=== PATIENT | male | born 1975 | race Two or more races ===

== ENCOUNTER 2020-11-23 08:28 | Emergency (ER) | payer OTHER, SELFPAY ==
[2020-11-23 08:38] VITALS: BP 148/88; PULSE 90; RESP 16; TEMP 36; O2SAT 98; BMI 29.8
--- NOTE | 2020-11-23 08:52 | PC.NURSE ---
ambulatory with steady gait to ed 19H cold pack to rt shoulder, awaiting exam
--- NOTE | 2020-11-23 09:08 | XR_ITS ---
EXAMINATION: XR CHEST CLINICAL INFORMATION: Pain COMPARISON: Radiographs right shoulder 11/23/2020, chest radiographs 02/19/2017, 08/25/2015 TECHNIQUE: Frontal view of the chest was obtained. FINDINGS: There is no pneumothorax or pleural reaction. No airspace consolidation or groundglass opacity. The costophrenic sulci are clear. The heart is normal in size. The hilar and mediastinal contours and visualized bony structures are unremarkable. XR/XR chest 1V IMPRESSION: Unremarkable examination.
--- NOTE | 2020-11-23 09:08 | XR_ITS ---
EXAMINATION: XR SHOULDER, RIGHT CLINICAL INFORMATION: Pain COMPARISON: Chest radiographs 01/31/2018, 11/23/2020 TECHNIQUE: Right shoulder is imaged in 4 views. FINDINGS: There is no fracture or dislocation. The acromioclavicular alignment is normal. No arthropathy. No visible rotator cuff calcifications. XR/XR shoulder RT min 2V IMPRESSION: Normal right shoulder.
--- NOTE | 2020-11-23 09:29 | ED_ITS ---
HPI - Extremity Problem General Chief complaint: Extremity Injury, Upper Stated complaint: work injury - shoulder pain Time Seen by Provider: 11/23/20 09:08 History of Present Illness HPI Narrative: Patient is a 45-year-old male patient claims he had repetitive work using his shoulder at work. Complaining of pain to the right upper extremity. No fever no chills. No chest pain or shortness of breath. The pain is specific to movement of the right upper extremity. Patient denies any tingling. Denies any weakness. The pain is worse with movement. No trauma. Pain is localized over the trapezius and shoulder area. Related Data Previous Rx's Medication Instructions Recorded ibuprofen 400 mg PO Q6H PRN #20 tab 11/23/20 Allergies Allergy/AdvReac Type Severity Reaction Status Date / Time Penicillins [PENICILLINS] Allergy Unknown UNKNOWN Unverified 08/17/20 18:23 Review of Systems Review of Systems: Constitutional: No Weight loss, No Fever, No Chills, No Night Sweats, No Fatigue, No Malaise ENT/Mouth: No Hearing loss, No Ear Pain, No Nasal Congestion, No Sinus Pain, No Hoarseness, No sore throat, No Rhinorrhea, No Swallowing Difficulty Eyes: No Eye Pain, No Swelling, No Redness, No Foreign Body, No Discharge, No Vision Changes Cardiovascular: No Chest Pain, No SOB, No Dyspnea on Exertion, No Orthopnea, No Edema, No Palpitations Respiratory: No Cough, No Sputum, No Wheezing, No Smoke Exposure, No Dyspnea Gastrointestinal: No Nausea, No Vomiting, No Diarrhea, No Constipation, No a bdominal Pain, No Hematochezia, No Melena Genitourinary: no irregular bleeding, No Dysuria, No Urinary Frequency, No Hematuria, No Urinary Incontinence, No Urgency, No Flank Pain, No Urinary Flow Changes, No Hesitancy Musculoskeletal: Positive pain to the right shoulder Skin: No Skin Lesions, No rash Neuro: No Weakness, No Numbness, No Paresthesias, No Loss of Consciousness, No Dizziness, No Headache Psych: No Anxiety/Panic, No Depression, No SI/HI/AH/VH, No Social Issues, Heme/Lymph: No Bruising, No Bleeding,No Lymphadenopathy Endocrine: No Polyuria, No Polydipsia, No Temperature Intolerance [facility] Past Medical History Attestation statement: The following information was validated with the patient. Social History Social History Advance Directives: No Advance Directives Information Provided: No Physical Exam Vital Signs: Vital Signs: Last Vital Signs Temp 96.8 F 11/23/20 08:38 Pulse 90 11/23/20 08:38 Resp 16 11/23/20 08:38 BP 148/88 H 11/23/20 08:38 Pulse Ox 98 11/23/20 08:38 Body Mass Index 29.8 Appearance: Alert. Oriented X3. No acute distress. Eyes: Pupils equal, round and reactive to light. ENT: Pharynx normal. Neck: Normal inspection. Neck supple. No lymph nodes noted. No crepitus CVS: Normal heart rate and rhythm. Pulses normal. Normal S1 and S2 Respiratory: No respiratory distress. Breath sounds normal. No Wheezing. No rales Abdomen: Soft and nontender. No rigidity. No distention. good BS x4 Skin: Skin warm and dry. Normal skin color. Normal skin turgor. Extremities: Examination to the right shoulder showed no gross deformity. Sensation over the axillary, median, radial, ulnar nerve intact. Flexion extension at elbow wrist fingers intact. Capillary refill less than 2 seconds. Pulse 2 + at radial. Patient has pain on abduction of the shoulder. Pain on palpation of the trapezius area on the right. There is no chest wall tenderness. No lower extremity edema. Neurovascular intact to all extremities. No Lacerations. No Rash Neuro: Oriented X 3. No motor deficit. No sensory deficit. Moving all extermities. No slurred speech MDM - Extremity (Nontraumatic) MDM Narrative Medical decision making narrative: X-ray showed no evidence of fracture dislocation. Chest x-ray showed no evidence of pneumonia pneumothorax. No clavicular damage. There is no trauma. Patient's pain is worse with position. Seems musculoskeletal. Cannot exclude the possibility of cervical radiculopathy. Will have patient tried Motrin. Follow up on an outpatient basis with her connection. Currently in stable condition. Discharge Plan Discharge Clinical Impression: Other sprain of right shoulder joint, initial encounter, Cervical radiculopathy Patient Disposition: Home, Self-Care Instructions: Shoulder Sprain (ED), Cervical Radiculopathy (ED) Prescriptions: New ibuprofen 400 mg tablet 400 mg PO Q6H PRN (Reason: pain) Qty: 20 RF: 0 Referrals: [facility] [Provider Group] - 2 days Stand Alone Forms: Work/School Release
--- NOTE | 2020-11-23 09:45 | US_ITS ---
EXAMINATION: US VENOUS ULTRASOUND WITH DOPPLER UPPER EXTREMITY, RIGHT CLINICAL INFORMATION: Swelling. Assess for occult DVT. COMPARISON: None TECHNIQUE: Ultrasound of the upper extremity is performed using compression sonography and color and pulse Doppler flow with assessment of augmentation of flow. There is also imaging and Doppler assessment of the jugular and subclavian veins. Spectral analysis with color-flow imaging is performed. FINDINGS: Respiratory variation, normal compression, and augmented flow are noted throughout the upper extremity including the axillary, brachial, cubital, and radial veins. The ulnar vein is not visualized with certainty. There is normal flow in the internal jugular and subclavian veins. There is no visible deep or superficial thrombophlebitis. US/US venous duplex UE RT IMPRESSION: 1. No DVT demonstrated in the right upper extremity. 2. The ulnar vein is not visualized with certainty. If the patient's symptoms process, a followup exam in 5 -7 days might be of value to exclude proximal propagation from a nonvisualized vein distal arm.
--- NOTE | 2020-11-23 10:10 | PC.NURSE ---
MRI SCREEN FORM COMPLETED WITH CENTRAL OFFICE FRAME WIRER AND RN, FAXED TO MRI DEPT, PT NOW CHANGING IN TO [facility]
--- NOTE | 2020-11-23 10:16 | CT_ITS ---
EXAMINATION: CT CERVICAL SPINE WITHOUT CONTRAST CLINICAL INFORMATION: Neck pain COMPARISON: Radiographs cervical spine 07/27/2013 TECHNIQUE: Multidetector volumetric CT imaging of the cervical spine is performed without contrast in the axial plane. Additional 2D reformatted coronal and sagittal images are generated on the CT workstation and uploaded to PACS. This CT examination was performed using dose optimization techniques as appropriate, variously including the following: *Automated exposure control *Adjustment of mA and/or kV according to patient size (this includes techniques or standardized protocols for targeted exams where dose is matched to indication/reason for exam; i.e. extremities or head) *Use of iterative reconstruction technique DLP: 583 mGy-cm FINDINGS: There is no visible acute bony abnormality. No fracture or destructive process, or paraspinal soft tissue swelling, or prevertebral soft tissue swelling. The craniocervical junction appears normal. The odontoid appears intact. There is reversal cervical lordosis with degenerative disc changes C4-C5 and lesser at C5-C6, both with partially bridging anterior osteophytes. There is a posterocentral ossification at the upper posterior C5 vertebral body measuring 3 mm in thickness, 6 mm across, and 7 mm in vertical dimension. Sagittal spinal canal is 8 mm at this level. There may be posterior annulus bulging at C4-C5. CT/CT cervical spine wo con IMPRESSION: 1. 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 This likely causes central spinal stenosis. 2. Question posterocentral disc bulging C4-C5. 3. No fracture, destructive process, or prevertebral soft tissue swelling.
--- NOTE | 2020-11-23 10:28 | PC.NURSE ---
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
[2020-11-23 11:46] VITALS: BP 145/95; PULSE 79; RESP 16; TEMP 36.6; O2SAT 97
== END 2020-11-23 11:48 | disposition home or self-care (01) ==
PROVIDERS: Emergency Provider Emergency Medicine Emergency Medical Services; PCP Internal Medicine
DX: S43.401A Unspecified sprain of right shoulder joint, initial encounter (principal); X50.1XXA Overexertion from prolonged static or awkward postures, initial encounter; M54.12 Radiculopathy, cervical region; M25.511 Pain in right shoulder; Y93.9 Activity, unspecified; Y92.9 Unspecified place or not applicable; Y99.0 Civilian activity done for income or pay
CPT/HCPCS: 71045; 72125; 73030; 93971; 99283; 99285

== ENCOUNTER 2021-03-07 08:36 | Emergency (ER) | payer MEDICAID, SELFPAY ==
[2021-03-07] VITALS (7 sets, daily range): BP systolic 125–157; BP diastolic 90–110; PULSE 62–87; RESP 15–16; TEMP -17.3–37.1; O2SAT 96–98; BMI 29.2
--- NOTE | ~2021-03-07 | CT_ITS ---
EXAMINATION: CT ABDOMEN AND PELVIS WITHOUT CONTRAST CLINICAL INFORMATION: Right flank and lower quadrant pain. Question kidney stones COMPARISON: November 07, 2018 TECHNIQUE: Multidetector volumetric imaging was performed from the superior aspect of the liver through the pubic symphysis. Sagittal and coronal reformatted images were obtained on the technologist's workstation. This CT examination was performed using dose optimization techniques as appropriate, variously including the following: *Automated exposure control *Adjustment of mA and/or kV according to patient size (this includes techniques or standardized protocols for targeted exams where dose is matched to indication/reason for exam; i.e. extremities or head) *Use of iterative reconstruction technique DLP: 601 mGy-cm FINDINGS: LUNG BASES: The visualized lung bases are unremarkable. No pleural or pericardial effusion. LIVER, GALLBLADDER, AND BILIARY TREE: The liver is normal in size, shape, and attenuation. No focal hepatic lesion or biliary ductal dilatation is present. The gallbladder is unremarkable with no evidence of radiopaque gallstones, gallbladder wall thickening, or obvious pericholecystic inflammatory changes. PANCREAS: Unremarkable. SPLEEN: Unremarkable. ADRENAL GLANDS: Unremarkable. KIDNEYS AND URETERS: Right kidney: There is mild hydronephrosis present. No renal calculi identified. No renal mass is seen. There is hydroureter down to the level of a right ureteral calculus at the ureterovesical junction. The calculus measures approximately 5 mm in diameter. Left kidney: There is a 3 mm nonocclusive calculus seen within the lower pole. There is a 6 mm nonobstructing calculus seen within the lower pole. No hydronephrosis. No hydroureter. No renal mass appreciated. BLADDER: Unremarkable. GASTROINTESTINAL TRACT: No dilated loops of large or small bowel are evident. No free air or free fluid. No pericolonic inflammatory change. The appendix is visualized and appears unremarkable. ABDOMINAL WALL: No significant hernia is appreciated. LYMPH NODES: No lymphadenopathy appreciated. VASCULAR: Unremarkable. PELVIC VISCERA: Unremarkable. OSSEOUS STRUCTURES: No suspicious destructive bony lesion identified. CT/CT abdomen pelvis wo con IMPRESSION: Obstructive 5 mm right ureterovesical junction calculus with mild right hydronephrosis. Left nephrolithiasis.
--- NOTE | 2021-03-07 09:26 | ED_ITS ---
HPI - General Adult General Chief complaint: General Medical Stated complaint: abd pain Time Seen by Provider: 03/07/21 09:05 Source: patient Mode of arrival: ambulatory Limitations: language barrier (Wallisian speaking only, telephone interviewer used to obtain information) History of Present Illness HPI narrative: 45-year-old male who presents emergency department for evaluation of right flank pain x2 weeks, right lower quadrant pain and right testicular pain. The patient states that he has had a constant, burning sensation in his right flank area. He states that initially the pain was mild to moderate intensity but today the pain became severe. He states that the pain radiates to his right lower quadrant area into his right testicle. He has noted dysuria and urge to move his bowels, he denied frequency or hematuria. The patient had associated nausea. He denied fever, chills, chest pain, shortness of breath, myalgias, arthralgias, diarrhea. He states that he had a kidney stone on his left side approximately 9 months prior in the pain feels similar to the kidney stone pain. Related Data Previous Rx's Medication Instructions Recorded ibuprofen 400 mg PO Q6H PRN #20 tab 11/23/20 ondansetron 4 mg PO Q6-8H PRN #14 tab 03/07/21 oxycodone 5 mg PO Q6H PRN #14 tab 03/07/21 tamsulosin [Flomax] 0.4 mg PO DAILY #30 cap 03/07/21 Allergies Allergy/AdvReac Type Severity Reaction Status Date / Time Penicillins [PENICILLINS] Allergy Unknown UNKNOWN Unverified 08/17/20 18:23 Review of Systems Review of Systems: Yes all other systems are reviewed and are negative [facility] Past Medical History [facility] Narrative: Patient has a history of left-sided kidney stone, he has no past surgical history, he denies tobacco, alcohol and drug use. Surgical History (Updated 12/22/20 @ 13:34 by FABIANA Kc) No pertinent past surgical history Family History Family History (Updated 12/22/20 @ 13:36 by FABIANA Kc) Father Hypertension Mother No problems noted. Maternal Grandmother No problems noted. Maternal Grandfather No problems noted. Paternal Grandfather Hypertension Son No problems noted. Son No problems noted. Daughter No problems noted. Daughter No problems noted. Daughter No problems noted. Daughter No problems noted. Social History Social History Alcohol intake: never Smoking Status: Never smoker Use of substances other than those prescribed or required for medical reasons: No Advance Directives: No Advance Directives Information Provided: No Physical Exam Vital Signs: Vital Signs: Last Vital Signs Temp 0.8 F L 03/07/21 10:29 Pulse 68 03/07/21 11:37 Resp 16 03/07/21 12:08 BP 130/94 H 03/07/21 11:37 Pulse Ox 98 03/07/21 11:37 Body Mass Index 29.2 Const: General: cooperative and healthy appearing Orientation/consciousness: oriented to person and oriented to place Limitations: no limitations HENMT: Head: Yes normal to inspection, Yes normocephalic and Yes atraumatic Ears: external ears normal General nose exam: Normal external nose present Face and sinus: Yes normal facial exam Mouth: Normal oral and palatal mucosa present Throat: Yes posterior oropharynx normal Eyes: Periorbital: periorbital findings normal Eyelids: Yes eyelids normal Conjunctivae: conjunctivae normal Sclerae: sclerae normal Corneas: corneas normal Pupils: Equal, round and reactive pupils present Direct Ophthalmoscopy: normal light reflex Neck: Neck: Yes full ROM, Yes no lymphadenopathy, Yes no meningeal signs, Yes trachea midline and Yes supple Chest: Chest palpation & inspection: normal inspection of the chest and normal palpation of entire chest wall Resp: Effort & Inspection: normal respiratory effort and able to speak in complete sentences Auscultation: clear to auscultation bilaterally Cardio: Rate: regular rate Rhythm: regular rhythm Heart sounds: S1 normal heart sound present, S2 normal heart sound present and no murmurs GI: Inspection: Yes normal to inspection Palpation (GI): Soft to palpation, Tenderness to palpation present (GI) in the RLQ (Mild), no guarding, not rigid and No hepatosplenomegaly present : General: Yes CVA tenderness on the right (Mild) Penis: normal penis Scrotum: scrotum normal Testes: other ([id number] right testicular ten derness) Back/Spine/Pelvis: Back: CVA tenderness Cervical Spine: normal cervical lordosis Thoracic/Lumbar Spine: thoracic and lumbar spine normal to inspection Skin: Lesions: no lesions Rashes: no rashes Wounds: no wounds Neuro: General: oriented to person, oriented to place and no meningeal signs Cranial nerves: Yes CN's II-XII intact bilaterally and Yes Equal, round and reactive pupils present Cognition (Neuro): normal cognition Motor exam (neuro): 5/5 motor strength present throughout Extrem: General: Yes normal to inspection and Yes full ROM Psych: Appearance: well kempt Mental Status: mental status grossly normal Speech and movement: Normal speech and movement present Affect: normal affect Attitude: cooperative Thought process: Normal thought process present Thought content: Normal thought content present Course Course Course Narrative: 45-year-old male who presents emergency department for evaluation of constant right flank and right lower quadrant pain x2 weeks which is gotten worse over the past 24 hours, the pain does radiate to his right testicle. Physical examination revealed right-sided CVA tenderness, right lower quadrant tenderness and a tender right testicle. Differential includes but is not limited to kidney/ureteral stone and testicular torsion. I did order a CBC, CMP, lipase , urinalysis and a CT scan of the abdomen pelvis without IV contrast. Patient's pain was treated with Toradol 30 mg IV, his nausea was treated with Zofran 4 mg IV. He was also ordered to get a L of normal saline IV. 1058: The patient's pain did improve after the above treatment, his pain is still 3/10 therefore he was ordered to get Tylenol 975 mg orally and oxycodone 5 mg orally. Laboratory evaluation was unremarkable. Urinalysis is pending. CT scan revealed a 5 mm right ureteral stone at the UVJ with mild right hydronephrosis and left nephrolithiasis (3 mm nonobstructing stone 6 mm nonobstructing stone). I did discuss these findings with the patient. 1230: The patient's urinalysis revealed RBCs only, no wbc's and no bacteria. The patient feels significantly better after the above treatment. The patient will be discharged home. He was advised to take Tylenol and ibuprofen for pain. For pain not relieved by these 2 medications he was given a prescription for oxycodone, I did discuss the fact that oxycodone is a narcotic and can be addicting with the patient. The patient states he does not have problem with addiction. The patient was also given a prescription for Flomax. He will need to follow-up with our on-call urologist. [facility] search revealed 1 prescription for Vicodin and a 1 year surgeon interval. Medical Decision Making Lab Data Result diagrams: 03/07/21 09:47 03/07/21 09:47 Labs: Lab Results 03/07/21 03/07/21 03/07/21 Range/Units 09:47 09:47 09:47 WBC 8.4 (4.8-10.8) X10*3/uL RBC 5.34 (4.60-5.80) X10*6/uL Hgb 15.7 (14.0-18.0) g/dl Hct 46.3 (42-52) % MCV 86.7 (80-98) fL MCH 29.4 (27.0-33.0) pg MCHC 33.9 (31.0-36.0) g/dl RDW 12.8 (11.0-16.0) % Plt Count 156 L (160-400) X10*3/uL MPV 11.4 (9.4-12.4) fL Immature Gran % (Auto) 0.4 (0.0-0.4) % Neut % (Auto) 70.1 (45-73) % Lymph % (Auto) 17.0 L (20-40) % [place] % (Auto) 8.4 (2-11) % Eos % (Auto) 3.3 (0-4) % Baso % (Auto) 0.8 (0-2) % Lymph # (Auto) 1.4 (1.2-4.9) X10*3/uL [place] # (Auto) 0.7 (0.1-1.2) X10*3/uL Eos # (Auto) 0.3 (0.0-0.4) X10*3/uL Baso # (Auto) 0.1 (0.0-0.2) X10*3/uL Abs Immat Gran (auto) 0.03 (0.00-0.03) X10*3/uL Absolute Neuts (auto) 5.9 (2.0-8.3) X10*3/uL Absolute Nucleated RBC 0.000 (0.0-0.012) X10*3/uL Nucleated RBC % (auto) 0.0 (0.0-0.2) /100WBC Sodium 141 (135-145) mmol/L Potassium 4.2 (3.3-5.1) mmol/L Chloride 102 (96-108) mmol/L Carbon Dioxide 33 H (22-29) mmol/L Anion Gap 10 L (12-20) BUN 10 (9-16) mg/dL Creatinine 0.84 (0.5-1.4) mg/dL Estim Creat Clear Calc 112.8 Estimated GFR > 60 Random Glucose 101 (60-115) mg/dL Calcium 9.2 (8.4-10.2) mg/dL Total Bilirubin 0.8 (0.0-1.0) mg/dL AST 18 (5-37) U/L ALT 29 (0-40) U/L Alkaline Phosphatase 106 (39-117) U/L Total Protein 7.3 (6.5-8.0) g/dL Albumin 4.3 (3.5-5.0) g/dL Lipase 55 (8-78) U/L Urine Color Urine Appearance Urine pH (5.0-8.0) Ur Specific Mart (1.005-1.025) Urine Protein (NEG-TRACE) MG/DL Urine Glucose (UA) (NEG) MG/DL Urine Ketones (NEG) MG/DL Urine Blood (NEG) Urine Nitrite (NEG) Ur Leukocyte Esterase (NEG) Urine RBC (0) /HPF Urine WBC (0-4) /HPF Ur Squamous Epith Cells /LPF Amorphous Sediment /LPF Urine Bacteria /LPF 03/07/21 Range/Units 11:33 WBC (4.8-10.8) X10*3/uL RBC (4.60-5.80) X10*6/uL Hgb (14.0-18.0) g/dl Hct (42-52) % MCV (80-98) fL MCH (27.0-33.0) pg MCHC (31.0-36.0) g/dl RDW (11.0-16.0) % Plt Count (160-400) X10*3/uL MPV (9.4-12.4) fL Immature Gran % (Auto) (0.0-0.4) % Neut % (Auto) (45-73) % Lymph % (Auto) (20-40) % [place] % (Auto) (2-11) % Eos % (Auto) (0-4) % Baso % (Auto) (0-2) % Lymph # (Auto) (1.2-4.9) X10*3/uL [place] # (Auto) (0.1-1.2) X10*3/uL Eos # (Auto) (0.0-0.4) X10*3/uL Baso # (Auto) (0.0-0.2) X10*3/uL Abs Immat Gran (auto) (0.00-0.03) X10*3/uL Absolute Neuts (auto) (2.0-8.3) X10*3/uL Absolute Nucleated RBC (0.0-0.012) X10*3/uL Nucleated RBC % (auto) (0.0-0.2) /100WBC Sodium (135-145) mmol/L Potassium (3.3-5.1) mmol/L Chloride (96-108) mmol/L Carbon Dioxide (22-29) mmol/L Anion Gap (12-20) BUN (9-16) mg/dL Creatinine (0.5-1.4) mg/dL Estim Creat Clear Calc Estimated GFR Random Glucose (60-115) mg/dL Calcium (8.4-10.2) mg/dL Total Bilirubin (0.0-1.0) mg/dL AST (5-37) U/L ALT (0-40) U/L Alkaline Phosphatase (39-117) U/L Total Protein (6.5-8.0) g/dL Albumin (3.5-5.0) g/dL Lipase (8-78) U/L Urine Color YELLOW Urine Appearance CLOUDY Urine pH 8.0 (5.0-8.0) Ur Specific Mart 1.020 (1.005-1.025) Urine Protein NEG (NEG-TRACE) MG/DL Urine Glucose (UA) NEG (NEG) MG/DL Urine Ketones NEG (NEG) MG/DL Urine Blood 3+ H (NEG) Urine Nitrite NEG (NEG) Ur Leukocyte Esterase NEG (NEG) Urine RBC 76-150 H (0) /HPF Urine WBC 0 (0-4) /HPF Ur Squamous Epith Cells NONE /LPF Amorphous Sediment 3+ /LPF Urine Bacteria NONE /LPF Discharge Plan Discharge Clinical Impression: Calculus, ureteral, Kidney calculi, Renal colic on right side Patient Disposition: Home, Self-Care Instructions: Kidney Stones (ED), How to Strain Your Urine (ED) Additional Instructions: Your CT scan revealed a 5 mm right ureteral stone (stone in the tube that con nects the kidney to the bladder). This stone is right at the junction of the ureter and the bladder. Your CT scan also revealed 2 kidney stones in your left kidney that are not giving you pain at this time, you have a 3 mm and 6 mm stone in your left kidney. Take Flomax (tamsulosin) 0.4 mg once a day until he passed the stone. Take ibuprofen 200 mg pills, 3 pills every 6 hours as needed for pain. Take Tylenol (acetaminophen) 500 mg pills, 2 pills every 4-6 hours as needed for pain. For pain not relieved by ibuprofen or Tylenol take oxycodone 5 mg pills, 1 pill every 4 hours as needed for pain. Do not drive or work while taking this medication since they can cause sleepiness. Oxycodone is a narcotic medication that can be addicting. If you are concerned about addiction you can ask the p harmacist for less pills or do not get this prescription filled. Take Zofran (ondansetron) 4 mg, 1 tablet dissolved in your mouth every 6-8 hours as needed for nausea and vomiting. Make sure you strain your urine to try to catch the kidney stone. Follow-up with our on-call urologist, Dr. Galeano within 1 week. Please return to the emergency department if your symptoms get worse or if you develop any symptoms that are concerning to you. Prescriptions: New tamsulosin [Flomax] 0.4 mg capsule 0.4 mg PO DAILY Qty: 30 RF: 0 ondansetron 4 mg tablet,disintegrating 4 mg PO Q6-8H PRN (Reason: nausea and vomiting) Qty: 14 RF: 0 oxycodone 5 mg tablet 5 mg PO Q6H PRN (Reason: pain) Qty: 14 RF: 0 No Action ibuprofen 400 mg tablet 400 mg PO Q6H PRN (Reason: pain) Qty: 20 RF: 0 Referrals: Andre Galeano MD [Physician] - 1 week (5 mm right ureteral calculi at the UVJ, renal colic x2 weeks. Nonobstructing 3 mm and 6 mm calculi in the left kidney) Print Language: Wallisian
[2021-03-07] MEDS: ondansetron HCL 4 MG/2 ML VIAL IVPUSH (09:50)
[2021-03-07] MEDS: 0.9 % Sodium Chloride 1,000 ML 999 ML IV (09:50)
[2021-03-07] MEDS: Ketorolac Tromethamine 30 MG/ML VIAL IVPUSH (09:50)
[2021-03-07 09:52] LABS: MANUAL DIFF FLAG NO
[2021-03-07 09:54] LABS: Basophils Absolute Auto 0.1 X10*3/uL (0.0-0.2); Basophils Percent Auto 0.8 % (0-2); Eosinophils Absolute Auto 0.3 X10*3/uL (0.0-0.4); Eosinophils Percent Auto 3.3 % (0-4); Hematocrit 46.3 % (42-52); Hemoglobin 15.7 g/dl (14.0-18.0); Imm Gran Abs Auto 0.03 X10*3/uL (0.00-0.03); Imm Gran Pct Auto 0.4 % (0.0-0.4); Lymphocytes Absolute Auto 1.4 X10*3/uL (1.2-4.9); Mean Corpuscular HGB Conc 33.9 g/dl (31.0-36.0); Mean Corpuscular Hemoglobin 29.4 pg (27.0-33.0); Mean Corpuscular Volume 86.7 fL (80-98); Mean Platelet Volume 11.4 fL (9.4-12.4); Monocytes Absolute Auto 0.7 X10*3/uL (0.1-1.2); Monocytes Percent Auto 8.4 % (2-11); Neutrophils Absolute Auto 5.9 X10*3/uL (2.0-8.3); Neutrophils Percent Auto 70.1 % (45-73); Platelet Count 156 X10*3/uL (160-400); Red Blood Count 5.34 X10*6/uL (4.60-5.80); Red Cell Distribution Width 12.8 % (11.0-16.0); White Blood Count 8.4 X10*3/uL (4.8-10.8)
[2021-03-07 10:25] LABS: Alanine Aminotransferase 29 U/L (0-40); Albumin Level 4.3 g/dL (3.5-5.0); Alkaline Phosphatase 106 U/L (39-117); Anion Gap 10 (12-20); Aspartate Amino Transferase 18 U/L (5-37); Bilirubin Total 0.8 mg/dL (0.0-1.0); Carbon Dioxide 33 mmol/L (22-29); Chloride 102 mmol/L (96-108); Creatinine Clr Calc Pharmacy 112.8; Estimated Glomerular Filt Rate > 60; Glucose Random 101 mg/dL (60-115); Lipase 55 U/L (8-78); Potassium 4.2 mmol/L (3.3-5.1); Sodium 141 mmol/L (135-145); Total Protein 7.3 g/dL (6.5-8.0)
[2021-03-07 10:27] LABS: Blood Urea Nitrogen 10 mg/dL (9-16); Calcium 9.2 mg/dL (8.4-10.2)
[2021-03-07] MEDS: oxyCODONE HCl Immed Release 5 MG TABLET PO (11:38)
[2021-03-07] MEDS: Acetaminophen 325 MG TABLET 975 MG PO (11:38)
[2021-03-07 11:44] LABS: Appearance Urine CLOUDY; Color Urine YELLOW; Glucose Urine UA NEG (NEG); Leukocyte Esterase Urine NEG (NEG); Nitrite Urine NEG (NEG); Urine Blood 3+ (NEG); Urine Ketones NEG (NEG); Urine Protein NEG (NEG-TRACE)
[2021-03-07 11:51] LABS: Amorphous Sediment Urine 3+ /LPF; WBC Urine 0 /HPF (0-4)
== END 2021-03-07 13:39 | disposition home or self-care (01) ==
PROVIDERS: Emergency Provider Emergency Medicine Emergency Medical Services; PCP Internal Medicine
DX: N20.2 Calculus of kidney with calculus of ureter (principal); R10.31 Right lower quadrant pain; Z79.899 Other long term (current) drug therapy
CPT/HCPCS: 36415; 74176; 80053; 81001; 83690; 85025; 96365; 96375; 99284; J1885; J2405

== ENCOUNTER 2021-03-08 13:42 | Outpatient (REF) | payer MEDICAID, SELFPAY | END 2021-03-08 13:43 | disposition home or self-care (01) | LOC: HO.LAB 13:42 | PROVIDERS: Visit Provider Internal Medicine | DX: Z20.822 Contact with and (suspected) exposure to COVID-19 (principal) | CPT/HCPCS: C9803; U0003; U0005 ==

== ENCOUNTER → 2021-03-15 14:55 | Outpatient (BNVA) | payer MEDICAID, SELFPAY | PROVIDERS: PCP Internal Medicine; Visit Provider Urology ==

== ENCOUNTER 2021-03-22 10:06 | Outpatient (REF) | payer MEDICAID, SELFPAY | END 2021-03-22 10:07 | disposition home or self-care (01) | LOC: HO.LAB 10:06 | PROVIDERS: Visit Provider Internal Medicine | DX: Z20.822 Contact with and (suspected) exposure to COVID-19 (principal) | CPT/HCPCS: C9803; U0003; U0005 ==

== ENCOUNTER 2021-04-24 13:28 | Outpatient (REF) | payer OTHER, SELFPAY ==
--- NOTE | ~2021-04-24 | XR_ITS ---
EXAMINATION: XR HAND, LEFT CLINICAL INFORMATION: Pain COMPARISON: None TECHNIQUE: PA, lateral, and oblique views of the left hand. FINDINGS: There is a foreign body is seen in the palmar soft tissues adjacent to the middle phalanx of the fifth finger. This measures 2 x 6 mm. Bone alignment is normal. No fracture or dislocation is seen. Joint spaces are normal. XR/XR hand LT min 3V IMPRESSION: 2 x 6 mm radiopaque soft tissue foreign body adjacent to the palmar middle phalanx of the fifth finger.
== END 2021-04-24 13:29 | disposition home or self-care (01) ==
LOC: HO.XRAY 13:28
PROVIDERS: PCP Internal Medicine; Visit Provider Internal Medicine
DX: M79.642 Pain in left hand (principal); M79.5 Residual foreign body in soft tissue
CPT/HCPCS: 73130

== ENCOUNTER → 2021-05-17 11:16 | Outpatient (BNVA) | payer OTHER, SELFPAY | PROVIDERS: PCP Internal Medicine; Referring Provider Internal Medicine; Visit Provider Surgery | DX: S60.552A Superficial foreign body of left hand, initial encounter (principal) | CPT/HCPCS: 99202 ==

== ENCOUNTER 2021-11-07 15:16 | Emergency (ER) | payer OTHER, SELFPAY ==
--- NOTE | ~2021-11-07 | CT_ITS ---
EXAMINATION: CT ABDOMEN AND PELVIS WITHOUT CONTRAST CLINICAL INFORMATION: Left flank pain. Question stone. COMPARISON: 03/07/2021 TECHNIQUE: Multidetector volumetric imaging was performed from the superior aspect of the liver through the pubic symphysis. Sagittal and coronal reformatted images were obtained on the technologist's workstation. This CT examination was performed using dose optimization techniques as appropriate, variously including the following: *Automated exposure control *Adjustment of mA and/or kV according to patient size (this includes techniques or standardized protocols for targeted exams where dose is matched to indication/reason for exam; i.e. extremities or head) *Use of iterative reconstruction technique DLP: 631 mGy-cm FINDINGS: LUNG BASES: The visualized lung bases are unremarkable. LIVER, GALLBLADDER, AND BILIARY TREE: The liver is normal in size, shape, and attenuation. No focal hepatic lesion or biliary ductal dilatation is present. The gallbladder is unremarkable with no evidence of radiopaque gallstones, gallbladder wall thickening, or obvious pericholecystic inflammatory changes. PANCREAS: Unremarkable. SPLEEN: Unremarkable. ADRENAL GLANDS: Unremarkable. KIDNEYS AND URETERS: The kidneys are normal in size, shape, and attenuation. Mild left hydroureteronephrosis. There is a mid ureteral 0.5 cm calculus seen at the level of L4. The distal ureter is decompressed. Asymmetric left perinephric stranding. Nonobstructing left lower pole 0.4 cm calculus which is 13 cm from the posterior axillary line. BLADDER: Unremarkable. GASTROINTESTINAL TRACT: The small and large bowel are unremarkable. The appendix is unremarkable. ABDOMINAL WALL: No significant hernia is appreciated. LYMPH NODES: Normal. VASCULAR: Unremarkable. PELVIC VISCERA: The prostate and seminal vesicles are unremarkable. OSSEOUS STRUCTURES: No acute or suspicious osseous abnormality. Tiny endplate osteophytes are noted. Mild degenerative changes in the hips. CT/CT abdomen pelvis wo con IMPRESSION: Mild left hydroureteronephrosis with a 0.5 cm mid ureteral obstructing calculus. Additional nonobstructing left lower pole renal calculus. Fleischner guidelines were followed.
[2021-11-07 15:51] VITALS: BP 158/100; PULSE 79; RESP 20; O2SAT 97; BMI 31.3
[2021-11-07 16:33] LABS: MANUAL DIFF FLAG NO
[2021-11-07 16:34] LABS: Basophils Absolute Auto 0.1 X10*3/uL (0.0-0.2); Basophils Percent Auto 0.9 % (0-2); Eosinophils Absolute Auto 0.4 X10*3/uL (0.0-0.4); Eosinophils Percent Auto 4.9 % (0-4); Hematocrit 44.8 % (42.0-52.0); Hemoglobin 15.7 g/dl (14.0-18.0); Imm Gran Abs Auto 0.02 X10*3/uL (0.00-0.03); Imm Gran Pct Auto 0.2 % (0.0-0.4); Lymphocytes Absolute Auto 2.1 X10*3/uL (1.2-4.9); Lymphocytes Percent Auto 23.9 % (20-40); Mean Corpuscular Hemoglobin 29.6 pg (27.0-33.0); Mean Corpuscular Volume 84.4 fL (80.0-98.0); Mean Platelet Volume 11.6 fL (9.4-12.4); Monocytes Absolute Auto 0.8 X10*3/uL (0.1-1.2); Monocytes Percent Auto 9.3 % (2-11); Neutrophils Absolute Auto 5.2 x10*3/uL (2.0-8.3); Neutrophils Percent Auto 60.8 % (45-73); Platelet Count 158 X10*3/uL (160-400); Red Blood Count 5.31 X10*6/uL (4.60-5.80); Red Cell Distribution Width 13.3 % (11.0-16.0); White Blood Count 8.6 X10*3/uL (4.8-10.8)
[2021-11-07 16:46] LABS: Anion Gap 12 (12-20); Blood Urea Nitrogen 8 mg/dL (9-16); Calcium 9.8 mg/dL (8.4-10.2); Carbon Dioxide 28 mmol/L (22-29); Chloride 104 mmol/L (96-108); Creatinine Clr Calc Pharmacy 93.2; Estimated Glomerular Filt Rate > 60; Glucose Random 106 mg/dL (60-115); Potassium 4.1 mmol/L (3.3-5.1); Sodium 140 mmol/L (135-145)
[2021-11-07 18:38] VITALS: BP 127/95; PULSE 77; RESP 16; TEMP 36.9; O2SAT 99
--- NOTE | 2021-11-07 18:39 | ED.GENADULT ---
HPI - General Adult General Chief complaint: General Medical Stated complaint: abd pain ?gallstones Time Seen by Provider: 11/07/21 18:39 Source: patient Mode of arrival: ambulatory Limitations: language barrier History of Present Illness HPI narrative: Patient with history of kidney stone which came out of its own last time, complaining of pain in the left flank area for last 4- 5 days getting worse prior to arrival patient nauseated and vomited 1 time pain is now radiating to the left testicle is sharp in character no fever chills no hematuria Related Data Previous Rx's Medication Instructions Recorded ondansetron 4 mg disintegrating 4 mg PO Q6-8H PRN #7 tab 11/07/21 tablet oxycodone 5 mg tablet 5 mg PO Q6H PRN #20 tab 11/07/21 tamsulosin 0.4 mg capsule (Flomax) 0.4 mg PO DAILY #10 cap 11/07/21 Allergies Allergy/AdvReac Type Severity Reaction Status Date / Time Penicillins [PENICILLINS] Allergy Unknown Unknown Verified 11/07/21 15:50 Review of Systems Review of Systems: Yes all other systems are reviewed and are negative [facility] Past Medical History Medical History Foreign body of left hand Hematuria Kidney stone Left hand pain Lumbar pain Surgical History No pertinent past surgical history Family History Family History Father Hypertension Mother No problems noted. Maternal Grandmother No problems noted. Maternal Grandfather No problems noted. Paternal Grandfather Hypertension Son No problems noted. Son No problems noted. Daughter No problems noted. Daughter No problems noted. Daughter No problems noted. Daughter No problems noted. Social History Social History Housing: Apartment Alcohol intake: never Patient Tobacco Use Status: Former Tobacco user Second Hand Smoke Exposure: Yes Advance Directives: No Advance Directives Information Provided: Yes service: No Current occupational status: employed Physical Exam Vital Signs: Vital Signs: Last Vital Signs Temp 98.5 F 11/07/21 18:38 Pulse 77 11/07/21 21:33 Resp 16 11/07/21 21:33 BP 124/81 11/07/21 21:33 Pulse Ox 96 11/07/21 21:33 BMI result Body Mass Index 31.3 Appearance: Alert. Oriented X3. No acute distress. ENT: Pharynx normal. Oral Mucosa moist Neck: Normal inspection. Neck supple. CVS: Normal heart rate and rhythm. Pulses normal. Respiratory: No respiratory distress. Equal air entry bilateral, no wheezing/rales/rhonchi Abdomen: Soft and nontender. Bowel sounds are present, no mass palpable,L CVA tenderness + Skin: Skin warm and dry. Normal skin color. Normal skin turgor. Extremities: No lower extremity edema. Neuro: Oriented X 3. Medical Decision Making MDM Narrative Medical decision making narrative: Patient with left mid ureter 5 mm stone with hydronephrosis patient felt better after pain medication and Flomax discharge patient home advised to follow with urologist Lab Data Lab results reviewed: Yes I reviewed the patient's lab results. Result diagrams: 11/07/21 16:27 11/07/21 16:27 Labs: Lab Results 11/07/21 11/07/21 11/07/21 Range/Units 16:27 16:27 18:38 WBC 8.6 (4.8-10.8) X10*3/uL RBC 5.31 (4.60-5.80) X10*6/uL Hgb 15.7 (14.0-18.0) g/dl Hct 44.8 (42.0-52.0) % MCV 84.4 (80.0-98.0) fL MCH 29.6 (27.0-33.0) pg MCHC 35.0 (31.0-36.0) g/dl RDW 13.3 (11.0-16.0) % Plt Count 158 L (160-400) X10*3/uL MPV 11.6 (9.4-12.4) fL Immature Gran % (Auto) 0.2 (0.0-0.4) % Neut % (Auto) 60.8 (45-73) % Lymph % (Auto) 23.9 (20-40) % [place] % (Auto) 9.3 (2-11) % Eos % (Auto) 4.9 H (0-4) % Baso % (Auto) 0.9 (0-2) % Lymph # (Auto) 2.1 (1.2-4.9) X10*3/uL [place] # (Auto) 0.8 (0.1-1.2) X10*3/uL Eos # (Auto) 0.4 (0.0-0.4) X10*3/uL Baso # (Auto) 0.1 (0.0-0.2) X10*3/uL Abs Immat Gran (auto) 0.02 (0.00-0.03) X10*3/uL Absolute Neuts (auto) 5.2 (2.0-8.3) x10*3/uL Absolute Nucleated RBC 0.000 (0.0-0.012) X10*3/uL Nucleated RBC % (auto) 0.0 (0.0-0.2) /100WBC Sodium 140 (135-145) mmol/L Potassium 4.1 (3.3-5.1) mmol/L Chloride 104 (96-108) mmol/L Carbon Dioxide 28 (22-29) mmol/L Anion Gap 12 (12-20) BUN 8 L (9-16) mg/dL Creatinine 1.04 (0.5-1.4) mg/dL Estim Creat Clear Calc 93.2 Estimated GFR > 60 Random Glucose 106 (60-115) mg/dL Calcium 9.8 D (8.4-10.2) mg/dL Urine Color YELLOW Urine Appearance CLOUDY Urine pH 7.5 (5.0-8.0) Ur Specific [place] 1.015 (1.005-1.025) Urine Protein NEG (NEG-TRACE) MG/DL Urine Glucose (UA) NEG (NEG) MG/DL Urine Ketones NEG (NEG) MG/DL Urine Blood 3+ H (NEG) Urine Nitrite NEG (NEG) Ur Leukocyte Esterase NEG (NEG) Urine RBC 30-49 H (0) /HPF Urine WBC 0 (0-4) /HPF Ur Squamous Epith Cells TRACE /LPF Amorphous Sediment 1+ /LPF Urine Bacteria TRACE /LPF Urine Mucus TRACE /LPF Discharge Plan Discharge Clinical Impression: Kidney stone on left side Patient Disposition: Home, Self-Care Instructions: Kidney Stones (ED) Additional Instructions: Drink plenty of fluids Pain medication as advised Follow-up with urologist as the stone likely to cause more pain Report to ER if pain gets worse Beber mucho l?quido Medicaci?n para el dolor seg?n lo recomendado Irving un seguimiento con el ur?logo, ya que es probable que el c?lculo cause m?s dolor. Informe a la iza de emergencias si el dolor empeora Prescriptions: New oxycodone 5 mg tablet 5 mg PO Q6H PRN (Reason: Pain, Moderate) Qty: 20 RF: 0 tamsulosin [Flomax] 0.4 mg capsule 0.4 mg PO DAILY Qty: 10 RF: 0 ondansetron 4 mg tablet,disintegrating 4 mg PO Q6-8H PRN (Reason: nausea and vomiting) Qty: 7 RF: 0 Referrals: Andre Galeano MD [Physician] - 5 days Stand Alone Forms: Work/School Release Interventions: ED Discharge Assessment Last Done: 11/07/21 21:34 Discharge Date/Time: 11/07/21 21:35
[2021-11-07 18:45] LABS: Appearance Urine CLOUDY; Color Urine YELLOW; Glucose Urine UA NEG (NEG); Leukocyte Esterase Urine NEG (NEG); Nitrite Urine NEG (NEG); PH 7.5 (5.0-8.0); Specific Gravity - Urine 1.015 (1.005-1.025); UACC Culture Trigger NO; Urine Blood 3+ (NEG); Urine Ketones NEG (NEG); Urine Protein NEG (NEG-TRACE)
[2021-11-07 18:51] LABS: Amorphous Sediment Urine 1+ /LPF; Bacteria Urine TRACE /LPF; Mucus Urine TRACE /LPF; RBC Urine 30-49 /HPF (0); Squamous Epithelial Cell Urine TRACE /LPF; WBC Urine 0 /HPF (0-4)
[2021-11-07] MEDS: 0.9 % Sodium Chloride 1,000 ML 999 ML IVCONT (19:14)
[2021-11-07] MEDS: ondansetron HCL 4 MG/2 ML VIAL IVPUSH (19:18)
[2021-11-07] MEDS: Ketorolac Tromethamine 30 MG/ML VIAL IVPUSH (19:18)
[2021-11-07] MEDS: Tamsulosin HCL 0.4 MG CAPSULE PO (19:18)
--- NOTE | 2021-11-07 19:20 | PC.NURSE ---
IV established, IVF infusing. Pt medicated per MAR, refusing Morphine @ this time, states Last time it made me crazy. VSS.
[2021-11-07] MEDS: oxyCODONE HCl Immed Release 5 MG TABLET 10 MG PO (20:58)
[2021-11-07 21:33] VITALS: BP 124/81; PULSE 77; RESP 16; O2SAT 96
== END 2021-11-07 21:35 | disposition home or self-care (01) ==
PROVIDERS: Emergency Provider Internal Medicine; PCP Internal Medicine
DX: N13.2 Hydronephrosis with renal and ureteral calculous obstruction (principal); Z87.442 Personal history of urinary calculi
CPT/HCPCS: 36415; 74176; 80048; 81001; 85025; 96361; 96374; 96375; 99284; J1885; J2405

== ENCOUNTER 2021-11-15 09:26 | Emergency (ER) | payer OTHER, SELFPAY ==
--- NOTE | ~2021-11-15 | US_ITS ---
EXAMINATION: LEFT RENAL ULTRASOUND REQUESTED BY ORDERING PROVIDER. CLINICAL INFORMATION: Renal colic COMPARISON: CT scan of November 07, 2021 TECHNIQUE: Real-time ultrasound evaluation of the left kidney. FINDINGS: Left kidney measures 11.4 x 6.8 x 5.4 cm in size. There is mild hydronephrosis. There is hydroureter seen down to the urinary bladder. No abnormal mass within the left kidney is seen. There are are noted to be 2 echogenic foci present consistent with calculi which are nonobstructive. One in the lower pole measures 5 x 4 mm in size and one in the midpole region measures 3 x 3 mm in size. The urinary bladder is is partially full. US/US renal LT IMPRESSION: Mild left hydronephrosis with left hydroureter. Bilateral ureteral jets identified but a partially left ureteral calculus cannot be excluded. A recently passed calculus could also have this appearance. Left nephrolithiasis.
[2021-11-15 10:06] VITALS: PULSE 86; RESP 18; TEMP 36.6; O2SAT 95; BMI 31.3
--- NOTE | 2021-11-15 10:31 | ED_ITS ---
HPI - Abdominal Pain General Chief Complaint: Abdominal Pain Stated Complaint: back pain Time Seen by Provider: 11/15/21 10:11 Source: patient and complaint investigations officer Mode of arrival: ambulatory Limitations: language barrier History of Present Illness HPI narrative: 46-year-old male with a history of renal colic here with c omplaints of left-sided flank pain with radiation to the left abdomen over the last 1.5 weeks. Patient tells me he was seen here on November 07 diagnosed with a left kidney stone. Referred to follow-up with urology. Patient tells me his upcoming appointment on November 22 with urology. Here today for persistent pain, nausea with 1 episode of vomiting today prior to arrival. No urinary complaints, fevers, chills. Patient tells me he has not been taking the oxycodone because when he takes it he feels dizzy. Of note, review of chart shows a 0.5cm with mild left hydro. Related Data Previous Rx's Medication Instructions Recorded ondansetron 4 mg disintegrating 4 mg PO Q6-8H PRN #7 tab 11/07/21 tablet oxycodone 5 mg tablet 5 mg PO Q6H PRN #20 tab 11/07/21 tamsulosin 0.4 mg capsule (Flomax) 0.4 mg PO DAILY #10 cap 11/07/21 prednisone 20 mg tablet 20 mg PO DAILY 5 Days #5 tab 11/08/21 naproxen 500 mg tablet (Naprosyn) 500 mg PO Q12H PRN #30 tab 11/13/21 Allergies Allergy/AdvReac Type Severity Reaction Status Date / Time Penicillins [PENICILLINS] Allergy Unknown Unknown Verified 11/07/21 15:50 Review of Systems Review of Systems Yes all other systems are reviewed and are negative Constitutional: Reports no additional constitutional complaints, Denies body ache(s), Denies chills, Denies fever(s), Denies headache(s) and Denies weakness Eyes: Reports no additional eye complaints and Denies change in vision Reports system reviewed and no additional complaints, except as documented, Denies dizziness, Denies headache(s), Denies nasal congestion, Denies nasal dis charge and Denies neck pain Cardiovascular: Reports no additional cardiovascular complaints, Denies chest pain, Denies leg edema and Denies dyspnea Respiratory: Reports no additional respiratory complaints, Denies cough and Denies dyspnea Gastrointestinal: Reports no additional gastrointestinal complaints, Reports abdominal pain, Denies diarrhea, Denies nausea and Denies vomiting Genitourinary: Denies urinary incontinence Musculoskeletal: Reports no additional musculoskeletal complaints, Reports back pain, Denies arthralgias, Denies joint swelling, Denies neck pain, Denies numbness and Denies tingling Skin/Breast: Reports system reviewed and no additional complaints, except as docu and Denies rash Reports system reviewed and no additional complaints, except as documented, Denies Abnormal speech present, Denies dizziness, Denies headache(s), Denies numbness, Denies tingling and Denies weakness Physical Exam Vital Signs: Vital Signs: Last Vital Signs Temp 97.9 F 11/15/21 10:34 Pulse 88 11/15/21 10:34 Resp 16 11/15/21 10:34 BP 144/91 H 11/15/21 10:34 Pulse Ox 95 11/15/21 10:34 BMI result Body Mass Index 31.3 Const: General: cooperative, healthy appearing, comfortable and no acute distress Orientation/consciousness: patient oriented x3 Limitations: no limitations HENMT: Head: Yes normal to inspection Ears: hearing grossly normal bilaterally General nose exam: Normal external nose present Face and sinus: Yes normal facial exam Mouth: Normal oral and palatal mucosa present Throat: Yes posterior oropharynx normal Eyes: General: appearance normal, both eyes and all related structures Pupils: Equal, round and reactive pupils present Neck: Neck: Yes normal visual inspection Chest: Chest palpation & inspection: normal inspection of the chest Resp: Effort & Inspection: normal respiratory effort Auscultation: clear to auscultation bilaterally Cardio: Rate: regular rate Rhythm: regular rhythm Peripheral pulses: P eripheral pulses 2+ throughout GI: Inspection: Yes normal to inspection Palpation (GI): Soft to palpation and Tenderness to palpation present (GI) (Left-sided abdominal pain moderate with no rebound or guarding) Auscultation: normal bowel sounds Back/Spine/Pelvis: Other: Left CVA tenderness moderate. Thoracic/Lumbar Spine: thoracic and lumbar spine normal to inspection Skin: General skin exam: no rashes or lesions noted Neuro: General: patient oriented x3, no focal motor deficits and normal sensation to monofilament Cranial nerves: Yes Equal, round and reactive pupils present Cognition (Neuro): normal cognition Speech: No Abnormal speech present Gait exam (Neuro): Normal gait present Motor exam (neuro): 5/5 motor strength present throughout Extrem: General: Yes normal to inspection Course Course Course Narrative: 46-year-old male with a known left 0.5 cm kidney stone with mild left hydro diagnosed on November 07 here in this emergency department here with persistent left flank and abdominal pain with associated vomiting. Patient has not been noncompliant with taking his oxycodone as it makes him feel dizzy and nauseous. He is taking Flomax daily. He has a follow-up on November 22 with urology. He has a history of multiple kidney stones but has never required any surgical intervention for these. On exam the patient has mild to moderate left CVA tenderness with some left-sided abdominal pain with no rebound or guarding. He reports some nausea at this time but no active vomiting. Will repeat labs, UA, renal ultrasound and provide analgesia 1300- Labs unremarkable. UA shows microscopic hematuria. Renal ultrasound shows IMPRESSION: Mild left hydronephrosis with left hydroureter. Bilateral ureteral jets identified but a partially left ureteral calculus cannot be excluded. A recently passed calculus could also have this appearance. ?Left nephrolithiasis. -pain well controlled. Patient tolerating p.o.. Plan for discharge home. Recommended taking an NSAID inset of oxycodone for pain due to reported side effects. Reviewed worrisome signs and symptoms of when to return to the emergency department. Comfortable discharge home. MDM - Abdominal Pain Medical Records Attestation: I reviewed the patient's medical records. Lab Data Attestation: I reviewed the patient's lab results. Result diagrams: 11/15/21 10:43 11/15/21 10:43 Labs: Lab Results 11/15/21 11/15/21 11/15/21 Range/Units 10:43 10:43 10:43 WBC 9.7 (4.8-10.8) X10*3/uL RBC 5.20 (4.60-5.80) X10*6/uL Hgb 15.1 (14.0-18.0) g/dl Hct 44.7 (42.0-52.0) % MCV 86.0 (80.0-98.0) fL MCH 29.0 (27.0-33.0) pg MCHC 33.8 (31.0-36.0) g/dl RDW 13.5 (11.0-16.0) % Plt Count 146 L (160-400) X10*3/uL MPV 11.0 (9.4-12.4) fL Immature Gran % (Auto) 0.4 (0.0-0.4) % Neut % (Auto) 72.6 (45-73) % Lymph % (Auto) 16.1 L (20-40) % [place] % (Auto) 8.4 (2-11) % Eos % (Auto) 2.0 (0-4) % Baso % (Auto) 0.5 (0-2) % Lymph # (Auto) 1.6 (1.2-4.9) X10*3/uL [place] # (Auto) 0.8 (0.1-1.2) X10*3/uL Eos # (Auto) 0.2 (0.0-0.4) X10*3/uL Baso # (Auto) 0.1 (0.0-0.2) X10*3/uL Abs Immat Gran (auto) 0.04 H (0.00-0.03) X10*3/uL Absolute Neuts (auto) 7.0 (2.0-8.3) x10*3/uL Absolute Nucleated RBC 0.000 (0.0-0.012) X10*3/uL Nucleated RBC % (auto) 0.0 (0.0-0.2) /100WBC Sodium 142 (135-145) mmol/L Potassium 4.2 (3.3-5.1) mmol/L Chloride 106 (96-108) mmol/L Carbon Dioxide 29 (22-29) mmol/L Anion Gap 11 L (12-20) BUN 15 D (9-16) mg/dL Creatinine 0.99 (0.5-1.4) mg/dL Estim Creat Clear Calc 97.9 Estimated GFR > 60 Random Glucose 116 H (60-115) mg/dL Calcium 8.8 D (8.4-10.2) mg/dL Total Bilirubin 0.6 (0.0-1.0) mg/dL Direct Bilirubin 0.2 (0.0-0.5) mg/dL AST 14 (5-37) U/L ALT 20 (0-40) U/L Alkaline Phosphatase 102 (39-117) U/L Total Protein 6.5 (6.5-8.0) g/dL Albumin 3.9 (3.5-5.0) g/dL Urine Color ORANGE Urine Appearance CLOUDY Urine pH 6.0 (5.0-8.0) Ur Specific [place] >= 1.030 H (1.005-1.025) Urine Protein 2+ H (NEG-TRACE) MG/DL Urine Glucose (UA) NEG (NEG) MG/DL Urine Ketones 5 (NEG) MG/DL Urine Blood 3+ H (NEG) Urine Nitrite NEG (NEG) Ur Leukocyte Esterase NEG (NEG) Urine RBC TNTC H (0) /HPF Urine WBC 0 (0-4) /HPF Ur Squamous Epith Cells NONE /LPF Calcium Oxalate Crystal 4+ /LPF Urine Bacteria NONE /LPF Urine Mucus 2+ /LPF Imaging Data Renal US: Attestation: I personally reviewed and interpreted this imaging study as follows: Radiologist's impression: [place] [id number] Ultrasound Report Signed Patient: Arturo Whitney MR#: [id number] : 1975 Acct:[id number] Age/Sex: 46 / M ADM Date: 11/15/21 Loc: .ED Attending Dr: Ordering Physician: Lauren Mcarthur NP Date of Service: 11/15/21 Procedure(s): US renal LT Accession Number(s): [id number] cc: Lauren Mcarthur NP~ EXAMINATION: LEFT RENAL ULTRASOUND REQUESTED BY ORDERING PROVIDER. CLINICAL INFORMATION: Renal colic? COMPARISON: CT scan of November 07, 2021? TECHNIQUE: Real-time ultrasound evaluation of the left kidney.? FINDINGS: Left kidney measures 11.4 x 6.8 x 5.4 cm in size. There is mild hydronephrosis. There is hydroureter seen down to the urinary bladder. No abnormal mass within the left kidney is seen. There are are noted to be 2 echogenic foci present consistent with calculi which are nonobstructive. One in the lower pole measures 5 x 4 mm in size and one in the midpole region measures 3 x 3 mm in size. The urinary bladder is is partially full.? US/US renal LT IMPRESSION: Mild left hydronephrosis with left hydroureter. Bilateral ureteral jets identified but a partially left ureteral calculus cannot be excluded. A recently passed calculus could also have this appearance. ? Left nephrolithiasis. Discharge Plan Discharge Clinical Impression: Renal colic on left side Patient Disposition: Home, Self-Care Instructions: Renal Colic (ED) Additional Instructions: The oxycodone can make you feel dizzy and nauseous Take ibuprofen instead Follow-up with urology as scheduled Prescriptions: No Action prednisone 20 mg tablet 20 mg PO DAILY 5 Days Qty: 5 RF: 0 naproxen [Naprosyn] 500 mg tablet 500 mg PO Q12H PRN (Reason: pain) Qty: 30 RF: 0 oxycodone 5 mg tablet 5 mg PO Q6H PRN (Reason: Pain, Moderate) Qty: 20 RF: 0 tamsulosin [Flomax] 0.4 mg capsule 0.4 mg PO DAILY Qty: 10 RF: 0 ondansetron 4 mg tablet,disintegrating 4 mg PO Q6-8H PRN (Reason: nausea and vomiting) Qty: 7 RF: 0 Referrals: Andre Galeano MD [Physician] - 1 week (as scheduled ) Stand Alone Forms: Work/School Release ON LICENSE OF [facility] Past Medical History Attestation statement: The following information was validated with the patient. Source: old records reviewed and nursing notes reviewed Medical History Foreign body of left hand Hematuria Kidney stone Left hand pain Lumbar pain Surgical History No pertinent past surgical history Family History Family History Father Hypertension Mother No problems noted. Maternal Grandmother No problems noted. Maternal Grandfather No problems noted. Paternal Grandfather Hypertension Son No problems noted. Son No problems noted. Daughter No problems noted. Daughter No problems noted. Daughter No problems noted. Daughter No problems noted. Social History Social History Housing: Apartment Alcohol intake: never Patient Tobacco Use Status: Former Tobacco user Second Hand Smoke Exposure: Yes Use of substances other than those prescribed or required for medical reasons: No Advance Directives: No Advance Directives Information Provided: No service: No Current occupational status: employed
[2021-11-15 10:34] VITALS: BP 144/91; PULSE 88; RESP 16; TEMP 36.6; O2SAT 95
[2021-11-15 10:49] LABS: MANUAL DIFF FLAG NO
[2021-11-15 10:52] LABS: Basophils Absolute Auto 0.1 X10*3/uL (0.0-0.2); Basophils Percent Auto 0.5 % (0-2); Eosinophils Absolute Auto 0.2 X10*3/uL (0.0-0.4); Hematocrit 44.7 % (42.0-52.0); Hemoglobin 15.1 g/dl (14.0-18.0); Imm Gran Abs Auto 0.04 X10*3/uL (0.00-0.03); Imm Gran Pct Auto 0.4 % (0.0-0.4); Lymphocytes Absolute Auto 1.6 X10*3/uL (1.2-4.9); Lymphocytes Percent Auto 16.1 % (20-40); Mean Corpuscular HGB Conc 33.8 g/dl (31.0-36.0); Monocytes Absolute Auto 0.8 X10*3/uL (0.1-1.2); Monocytes Percent Auto 8.4 % (2-11); Neutrophils Percent Auto 72.6 % (45-73); Platelet Count 146 X10*3/uL (160-400); Red Cell Distribution Width 13.5 % (11.0-16.0); White Blood Count 9.7 X10*3/uL (4.8-10.8)
[2021-11-15 10:54] LABS: Appearance Urine CLOUDY; Color Urine ORANGE; Glucose Urine UA NEG (NEG); Leukocyte Esterase Urine NEG (NEG); Nitrite Urine NEG (NEG); Specific Gravity - Urine >= 1.030 (1.005-1.025); UACC Culture Trigger NO; Urine Blood 3+ (NEG); Urine Ketones 5 MG/DL (NEG); Urine Protein 2+ MG/DL (NEG-TRACE)
[2021-11-15 11:08] LABS: Alanine Aminotransferase 20 U/L (0-40); Albumin Level 3.9 g/dL (3.5-5.0); Alkaline Phosphatase 102 U/L (39-117); Anion Gap 11 (12-20); Aspartate Amino Transferase 14 U/L (5-37); Bilirubin Direct 0.2 mg/dL (0.0-0.5); Bilirubin Total 0.6 mg/dL (0.0-1.0); Blood Urea Nitrogen 15 mg/dL (9-16); Calcium 8.8 mg/dL (8.4-10.2); Carbon Dioxide 29 mmol/L (22-29); Chloride 106 mmol/L (96-108); Creatinine Clr Calc Pharmacy 97.9; Estimated Glomerular Filt Rate > 60; Glucose Random 116 mg/dL (60-115); Potassium 4.2 mmol/L (3.3-5.1); Sodium 142 mmol/L (135-145); Total Protein 6.5 g/dL (6.5-8.0)
[2021-11-15] MEDS: Ibuprofen 800 MG TABLET PO (11:42)
[2021-11-15 11:55] LABS: Calcium Oxalate Crystals Urine 4+ /LPF; Mucus Urine 2+ /LPF; RBC Urine TNTC /HPF (0); WBC Urine 0 /HPF (0-4)
--- NOTE | 2021-11-15 12:06 | PC.NURSE ---
pt reports he was seen here in the ed 11/07 and was diagnosed with kidney stones. today he is here with the same symptoms of 09/09 left-sided flank pain and reports one episode of vomiting prior to coming to the ed. he denies fever/chills/diarrhea. no change in bowel or bladder pattern. no other symptoms reported.
[2021-11-15 14:29] VITALS: BP 103/84; PULSE 98; RESP 16; TEMP 36.6; O2SAT 97
== END 2021-11-15 14:35 | disposition home or self-care (01) ==
PROVIDERS: Nurse Practitioner Family; Emergency Provider Emergency Medicine; PCP Internal Medicine
DX: N23 Unspecified renal colic (principal); N13.30 Unspecified hydronephrosis; Z87.442 Personal history of urinary calculi
CPT/HCPCS: 36415; 76775; 80048; 80076; 81001; 85025; 96372; 99284; 99285; J1885

== ENCOUNTER → 2021-11-22 08:56 | Outpatient (BNVA) | payer OTHER, SELFPAY | PROVIDERS: PCP Internal Medicine; Visit Provider Urology | DX: N20.0 Calculus of kidney (principal) | CPT/HCPCS: 99212 ==

== ENCOUNTER 2021-12-31 07:11 | Day surgery (SDC) | payer OTHER, SELFPAY ==
[2021-12-25 14:05] VITALS: BMI 31.3
--- NOTE | 2021-12-26 14:26 | HO.ANESPROP2 ---
Documented by User: Apurva Vaughan NP 12/26/21 14:27 HPI - Anesthesia Eval Consult details Narrative: 46yo M for Left Cystoscopy, Ureteroroscopy, Retro, Laser, possible stent PMFSH Active Problems Active Problems: All Active Problems (Updated 11/22/21 @ 09:50 by Adnre Galeano MD) Kidney stone (Acute) Nephrolithiasis (Acute) Hematuria (Acute) Lumbar pain (Acute) Foreign body of left hand (Acute) Left hand pain (Acute) Past Medical History Medical History (Updated 11/22/21 @ 09:50 by Andre Galeano MD) Foreign body of left hand Hematuria Kidney stone Left hand pain Lumbar pain Family History Family History Father Hypertension Mother No problems noted. Maternal Grandmother No problems noted. Maternal Grandfather No problems noted. Paternal Grandfather Hypertension Son No problems noted. Son No problems noted. Daughter No problems noted. Daughter No problems noted. Daughter No problems noted. Daughter No problems noted. Surgical History Surgical History No pertinent past surgical history Social History Social History Housing: Apartment Alcohol intake: never Patient Tobacco Use Status: Former Tobacco user Tobacco use type: Cigarette Smoked in Last 30 Days: No Second Hand Smoke Exposure: Yes Use of substances other than those prescribed or required for medical reasons: No Are you DNR?: No Advance Directives: No Advance Directives Information Provided: Yes Recently lost weight without trying: No Nutrition Risks: No Nutritional Risk service: No Current occupational status: employed Meds Allergies Allergy/AdvReac Type Severity Reaction Status Date / Time Penicillins [PENICILLINS] Allergy Unknown Unknown Verified 11/22/21 09:01 Exam Exam Date and Time: December 26, 2021 1426 Height,Weight and Vital Signs: Height 5 ft 6 in Weight 87.997 kg Pertinent Lab Results Pertinent Lab Results: Laboratory Tests 11/15/21 11/15/21 10:43 10:43 WBC 9.7 Hgb 15.1 Hct 44.7 Plt Count 146 L Sodium 142 Potassium 4.2 Chloride 106 Carbon Dioxide 29 BUN 15 D Creatinine 0.99 Assessment and Plan Assessment Anesthesia Assessment: Chart Reviewed Documented by User: Ji Norman 12/31/21 13:30 PMFSH Past Medical History Medical History (Updated 11/22/21 @ 09:50 by Andre Galeano MD) Foreign body of left hand Hematuria Kidney stone Left hand pain Lumbar pain Family History Family History Father Hypertension Mother No problems noted. Maternal Grandmother No problems noted. Maternal Grandfather No problems noted. Paternal Grandfather Hypertension Son No problems noted. Son No problems noted. Daughter No problems noted. Daughter No problems noted. Daughter No problems noted. Daughter No problems noted. Family history of problems with anesthesia: No Surgical History Surgical History No pertinent past surgical history History of Problems with Anesthesia: No Social History Social History Housing: Apartment Alcohol intake: never Patient Tobacco Use Status: Former Tobacco user Tobacco use type: Cigarette Smoked in Last 30 Days: No Second Hand Smoke Exposure: Yes Use of substances other than those prescribed or required for medical reasons: No Are you DNR?: No Advance Directives: No Advance Directives Information Provided: Yes Recently lost weight without trying: No Nutrition Risks: No Nutritional Risk service: No Current occupational status: employed Meds Allergies Allergy/AdvReac Type Severity Reaction Status Date / Time Penicillins [PENICILLINS] Allergy Unknown Unknown Verified 11/22/21 09:01 Exam Airway Mallampati Class: IV TM Dist: >3cm Neck ROM: Full Loose/Missing/Broken Teeth: Yes (chipped , poor dentation ) Heart: rrr Lungs: bl breath sounds Assessment and Plan Assessment Anesthesia Assessment: Anesthesia Plan Discussed Final Anesthetic Review Family History of Problems with Anesthesia: No History of Problems with Anesthesia: No NPO: Yes ASA Class: II Final Preanesthetic Review: Meds/Allgs Chart Reviewed and Consent Obtained/Reviewed Patient Risk: Intermediate Procedure Risk: Intermediate Anesthetic Plan Anesthetic Plan: GA Disposition: Standard PACU
[2021-12-31] VITALS (8 sets, daily range): BP systolic 114–145; BP diastolic 70–97; PULSE 81–97; RESP 14–18; TEMP 36.1–36.6; O2SAT 93–97; BMI 31.9
--- NOTE | ~2021-12-31 | FL_ITS ---
EXAMINATION: XR FLUOROSCOPY WITH IMAGES CLINICAL INFORMATION: Left-sided stone. COMPARISON: Previous renal ultrasound October [address] of the abdomen and pelvis October 2021 TECHNIQUE: Fluoroscopy performed by Dr. Andre Galeano. Fluoroscopy time: 19 seconds Cumulative dose: 6.5 mGy Images: 2 FINDINGS: Images demonstrate contrast opacification of the left renal collecting system and proximal ureter. These appear normal in caliber. No stone is seen. FL/FL guidance in OR IMPRESSION: Fluoroscopy guidance for left retrograde exam.
[2021-12-31] MEDS: Lactated Ringers 1,000 ML 100 ML IVCONT (09:04)
--- NOTE | 2021-12-31 10:02 | MHC.SHP ---
Pre-Procedural Eval Section A Date of Service: 12/31/21 The patient is an INPATIENT: No Changes since office visit: Yes Cold of Flu in the past 2 weeks, Yes New Medical Problems, Yes Changes in Medication and Yes Patient answered all questions The History & Physical has been completed within 30 days and I have reviewed it.: Yes Section B Chief Complaint: kidney stone Details of Present Illness: Seen in emergency room with left stone. For the stones in left kidney. Relevant Family History (Specify if Yes): No Relevant Social History: None Present Medications: see Short Stay Collaborative assessment Medical History: No relevant PMH History of Previous Operations: No relevant previous surgery Allergies: Allergies Allergy/AdvReac Type Severity Reaction Status Date / Time Penicillins [PENICILLINS] Allergy Unknown Unknown Verified 11/22/21 09:01 Review of Systems Sugical H&P ROS: Negative: Constitution, Cardiovascular, Respiratory, Neurological, Psychiatric, Hem-Onc, Allergic/Immunologic, Gastrointestinal, Genitourinary, Musculoskeletal, Integumentary, Endocrine and Eyes/Ears/Nose/Throat Exam Surgical H&P Exam: Normal: HEENT, Normal: Heart, Normal: Lungs, Normal: Extremities, Normal: Abdomen, Normal: Skin and Normal: Neurological Plan Diagnosis/Plan: Unchanged (Left flexible ureteroscopy with laser lithotripsy stent placement) I have reviewed the history and physical and performed a pertinent physical examination on my patient. No changes have occurred unless specified.
[2021-12-31] MEDS: levoFLOXacin 500 MG TABLET PO (10:38)
[2021-12-31] MEDS: Acetaminophen 325 MG TABLET 650 MG PO (10:38)
[2021-12-31] MEDS: Phenazopyridine HCL 100 MG TABLET PO (12:17)
[2021-12-31] MEDS: traMADoL HCL 50 MG TABLET PO (12:18)
--- NOTE | 2022-03-21 15:55 | P.OP_ITS ---
Operative Note Operative Note Date of Service: 12/31/21 Narrative: PreOperative Diagnosis: Left renal stone Post Operative Diagnosis: Left renal stones Procedure: - cystoscopy, leftretrograde - left dilatation of ureteric orifice under fluoroscopy - left ureteroscopy, laser lithotripsy - left stent placement Surgeon: Dr Andre Galeano Anesthesia: General Indications for procedure: Seen in emergency room late October 2021. Distal left ureteric stone with 2 stones in kidney. He presents today for definitive procedure. Procedure: After informed consent was verified patient was brought to the operating placed in supine position. Anesthesia was administered per protocol. Patient was placed in modified dorsal lithotomy position and prepped and draped in a sterile fashion. Safety pause time-out and side of surgery confirmed. Antibiotics confirmed. 22 [place]ian cystoscope was inserted per urethra. Bladder was normal in its entirety. Both ureteric orifices were in normal position. The left ureteric orifice was cannulated and a retrograde examination was performed. No filling defects seen within the ureter or renal pelvis. A Sensor guidewire was placed up to the level of the renal pelvis under fluoroscopy. The rigid cystoscope was removed and the inner cannula of ureteric access sheath was used under fluoroscopy to dilate the ureteric orifice. The ureteric access sheath was placed and the inner cannula with access wire removed. The digital flexible ureteral scope was placed. A 5 mm stone encountered in the left mid pole. Using a 270 micron laser fiber the stone was broken into small pieces. A 2nd stone was located in the lower pole. Using laser fiber the stone was broken into small pieces. Fragments were too small to be basketed. Decision was made to leave a stent. A 6 [place]ian by 26cm double-J stent was placed into the renal pelvis and bladder under a combination of fluoroscopy and direct visualization. The bladder was emptied. The patient tolerated the procedure well and was extubated in the operating room, and transferred in stable condition to the recovery area. Pathology: No stone fragments Drains: 6 [place]ian by 26 cm double-J stent
== END 2021-12-31 13:16 | disposition home or self-care (01) ==
PROVIDERS: PCP Internal Medicine; Visit Provider Urology
PROC: (CPT 52332; principal; 2021-12-31 09:40)
DX: N20.0 Calculus of kidney (principal); Z87.442 Personal history of urinary calculi; Z88.0 Allergy status to penicillin; Z87.891 Personal history of nicotine dependence
CPT/HCPCS: 52332; C1758; C1769; J1100; J2250; J2405; J3010; Q9967

== ENCOUNTER 2022-01-08 10:20 | Outpatient (REF) | payer OTHER, SELFPAY ==
--- NOTE | ~2022-01-08 | XR_ITS ---
EXAMINATION: XR ABDOMEN KUB CLINICAL INDICATION: Calculus of the ureter. COMPARISON: Left renal ultrasound 11/15/2021 and left retrograde pyelogram 12/31/2021 TECHNIQUE: AP view of the abdomen. FINDINGS: There is scattered stool and gas seen throughout the colon without any significant distention. No radiopaque calculi seen along the course of kidney, ureter or bladder. No gross bony abnormality. XR/XR KUB IMPRESSION: No radiopaque kidney, ureteral or bladder calculi seen Mild constipation.
== END 2022-01-08 10:21 | disposition home or self-care (01) ==
LOC: HO.XRAY 10:20
PROVIDERS: PCP Internal Medicine; Visit Provider Urology
DX: N20.0 Calculus of kidney (principal); N20.1 Calculus of ureter
CPT/HCPCS: 52310; 74018; 99212

== ENCOUNTER 2022-02-20 13:11 | Outpatient (REF) | payer OTHER, SELFPAY ==
--- NOTE | ~2022-02-20 | US_ITS ---
EXAMINATION: US RETROPERITONEAL LIMITED (RENAL ONLY) CLINICAL INFORMATION: Calculus of kidney. COMPARISON: X-ray abdomen KUB 01/08/2022. Renal ultrasound 11/15/2021. CT abdomen and pelvis 11/07/2021. TECHNIQUE: Real-time imaging of the kidneys. FINDINGS: RIGHT KIDNEY: 11.6 x 7.9 x 5.3 cm (SAG x AP x TRV). The kidney is normal in size, contour, and echogenicity. Renal cortical thickness is normal. No focal parenchymal lesions or hydronephrosis. There is an echogenic stone in midpole measuring 0.6 x 0.5 cm. No additional stones seen. LEFT KIDNEY: 10.0 x 6.4 x 4.8 cm (SAG x AP x TRV). The kidney is normal in size, contour, and echogenicity. Renal cortical thickness is normal. No focal parenchymal lesions or hydronephrosis. There is an echogenic stone in midpole measuring 0.4 cm. No additional echogenic stones seen. ADDITIONAL FINDINGS: Incidentally noted is an enlarged spleen. US/US renal BI IMPRESSION: Nonobstructive echogenic renal calculi. No hydronephrosis.
== END 2022-02-20 13:12 | disposition home or self-care (01) ==
LOC: HO.US 13:11
PROVIDERS: Visit Provider Urology
DX: N20.0 Calculus of kidney (principal)
CPT/HCPCS: 76775

== ENCOUNTER → 2022-03-05 11:28 | Outpatient (BNVA) | payer OTHER, SELFPAY | PROVIDERS: PCP Internal Medicine; Visit Provider Urology | DX: N20.0 Calculus of kidney (principal) | CPT/HCPCS: 99212 ==

== ENCOUNTER 2022-08-28 12:41 | Outpatient (REF) | payer OTHER, SELFPAY ==
--- NOTE | ~2022-08-28 | US_ITS ---
EXAMINATION: US RETROPERITONEAL LIMITED (RENAL ONLY) CLINICAL INFORMATION: Calculus of kidney. COMPARISON: Ultrasound retroperitoneal limited (renal only) 02/20/2022. X-ray abdomen KUB 01/08/2022. Left renal ultrasound 11/15/2021. CT abdomen and pelvis without contrast 11/07/2021. TECHNIQUE: Real-time imaging of the kidneys. FINDINGS: RIGHT KIDNEY: 10.7 x 7.5 x 5.8 cm (SAG x AP x TRV). The kidney is normal in size, contour, and echogenicity. Renal cortical thickness is normal. No calculi or focal parenchymal lesions. No hydronephrosis. LEFT KIDNEY: 10.1 x 6.5 x 5.2 cm (SAG x AP x TRV). The kidney is normal in size, contour, and echogenicity. Renal cortical thickness is normal. There is a small 6 x 5 x 6 mm cyst in the midpole with focus of wall calcification or milk of calcium cyst. No renal calculi or hydronephrosis. US/US renal BI IMPRESSION: No stone seen. Small left renal cyst.
== END 2022-08-28 12:42 | disposition home or self-care (01) ==
LOC: HO.US 12:41
PROVIDERS: Visit Provider Urology
DX: N20.0 Calculus of kidney (principal)
CPT/HCPCS: 76775

== ENCOUNTER → 2022-09-05 11:30 | Outpatient (BNVA) | payer OTHER, SELFPAY | PROVIDERS: PCP Internal Medicine; Visit Provider Urology | DX: N20.0 Calculus of kidney (principal) | CPT/HCPCS: 51798; 99212 ==

== ENCOUNTER 2022-10-08 10:31 | Emergency (ER) | payer OTHER, SELFPAY ==
--- NOTE | ~2022-10-08 | XR_ITS ---
EXAMINATION: XR LUMBOSACRAL SPINE CLINICAL INFORMATION: Back pain. COMPARISON: None TECHNIQUE: Three views of the lumbosacral spine. FINDINGS: The vertebral bodies and posterior elements are normal. The disc spaces are preserved and the vertebral alignment is normal. The paraspinal soft tissues are normal. XR/XR lumbar spine 2-3V IMPRESSION: Unremarkable lumbar spine.
[2022-10-08 10:48] VITALS: BP 144/95; PULSE 91; RESP 20; TEMP 36.1; O2SAT 95; BMI 29.9
--- NOTE | 2022-10-08 15:13 | ED_ITS ---
HPI - Back Pain/Injury General Chief Complaint: Back Pain/Injury Stated Complaint: BACK PAIN Time Seen by Provider: 10/08/22 15:11 Source: patient and certified court/medical interpreter Mode of arrival: ambulatory Limitations: language barrier History of Present Illness HPI Narrative: 47 yo male with history of asthma here with right lower back pain since lifting something heavy at work on Friday. Pain R>L with radiation down right leg. No numbness or tingling in the legs or in the groin. No bowel or bladder incontinence. No fevers or chills. Patient taking Tylenol with continued pain. MD elicited complaint: back pain Related Data Previous Rx's Medication Instructions Recorded pyridoxine (vitamin B6) 100 mg 100 mg PO DAILY #90 tabs 09/05/22 tablet cyclobenzaprine 10 mg tablet 10 mg PO TID PRN muscle spasm #15 10/08/22 tabs ibuprofen 600 mg tablet 600 mg PO Q8H PRN pain #30 tabs 10/08/22 lidocaine 5 % topical patch 1 patch topical DAILY #15 ea 10/08/22 (Lidoderm) Allergies Allergy/AdvReac Type Severity Reaction Status Date / Time Penicillins [PENICILLINS] Allergy Unknown Unknown Verified 09/02/22 14:42 Review of Systems Review of Systems: Yes all other systems are reviewed and are negative Constitutional: Constitutional: Reports no additional constitutional complaints, Denies body ache(s), Denies chills, Denies fever(s), Denies headache(s) and Denies weakness Eyes: Eyes: Reports no additional eye complaints and Denies change in vision ENT: Reports system reviewed and no additional complaints, except as documented, Denies dizziness, Denies headache(s), Denies nasal congestion, Denies nasal discharge and Denies neck pain Cardiovascular: Cardiovascular: Reports no additional cardiovascular complaints, Denies chest pain, Denies leg edema and Denies dyspnea Respiratory: Respiratory: Reports no additional respiratory complaints, Denies cough and Denies dyspnea Gastrointestinal: Gastrointestinal: Reports no additional gastrointestinal complaints, Denies abdominal pain, Denies diarrhea, Denies nausea and Denies vomiting Genitourinary: Genitourinary: Denies dysuria, Denies flank pain, Denies testicular pain and Denies urinary incontinence Musculoskeletal: Musculoskeletal: Reports no additional musculoskeletal complaints, Reports back pain, Denies arthralgias, Denies joint swelling, Denies neck pain, Denies numbness and Denies tingling Integumentary/Breasts: Skin/Breast: Reports system reviewed and no additional complaints, except as docu and Denies rash Neurologic: Reports system reviewed and no additional complaints, except as documented, Denies Abnormal speech present, Denies dizziness, Denies headache(s), Denies numbness, Denies tingling and Denies weakness PMFSH Past Medical History Attestation statement: The following information was validated with the patient. Source: old records reviewed and nursing notes reviewed Medical History Foreign body of left hand Hematuria Kidney stone Left hand pain Lumbar pain Surgical History No pertinent past surgical history Family History Family History Father Hypertension Mother No problems noted. Maternal Grandmother No problems noted. Maternal Grandfather No problems noted. Paternal Grandfather Hypertension Son No problems noted. Son No problems noted. Daughter No problems noted. Daughter No problems noted. Daughter No problems noted. Daughter No problems noted. Social History Social History Housing: Apartment Alcohol intake: never Patient Tobacco Use Status: Former Tobacco user Tobacco use type: Cigarette Second Hand Smoke Exposure: Yes Advance Directives: No Advance Directives Information Provided: Yes service: No Current occupational status: employed Physical Exam Vital Signs: Vital Signs: Last Vital Signs Temp 96.9 F 10/08/22 10:48 Pulse 91 10/08/22 10:48 Resp 20 10/08/22 10:48 BP 144/95 H 10/08/22 10:48 Pulse Ox 95 10/08/22 10:48 O2 Del Method 10/08/22 10:48 BMI result Body Mass Index 29.9 Const: General: cooperative, healthy appearing, comfortable and no acute distress Orientation/consciousness: patient oriented x3 Limitations: no limitations HEENT: Head: Yes normal to inspection Ears: hearing grossly normal bilaterally General nose exam: Normal external nose present Face and sinus: Yes normal facial exam Mouth: Normal oral and palatal mucosa present Throat: Yes posterior oropharynx normal Eyes: General: appearance normal, both eyes and all related structures Pupils: Equal, round and reactive pupils present Neck: Neck: Yes normal visual inspection Chest: Chest palpation & inspection: normal inspection of the chest Resp: Effort & Inspection: normal respiratory effort Auscultation: clear to auscultation bilaterally Cardio: Rate: regular rate Rhythm: regular rhythm Peripheral pulses: Peripheral pulses 2+ throughout GI: Inspection: Yes normal to inspection Palpation (GI): Soft to palpation and nontender Auscultation: normal bowel sounds : General: Yes no CVA tenderness Back/Spine/Pelvis: Other: Tenderness the right lumbar soft tissue with no midline tenderness, step-offs deformities. Pain is worsened with right straight leg raise. Pain is also worse with flexion extension lumbar spine. Back: no CVA tenderness Thoracic/Lumbar Spine: thoracic and lumbar spine normal to inspection Skin: General skin exam: no rashes or lesions noted Neuro: General: patient oriented x3, moves all extremities, no focal motor deficits and normal sensation to monofilament Cranial nerves: Yes Equal, round and reactive pupils present Cognition (Neuro): normal cognition Speech: No Abnormal speech present Gait exam (Neuro): Normal gait present Motor exam (neuro): 5/5 motor strength present throughout Sensory Exam: Normal double simultaneous stimulation for sensation Deep tendon reflexes (DTR's): Right patellar reflex intensity grade: 2+ and Left patellar reflex intensity grade: 2+ Extrem: General: Yes normal to inspection MDM - Back Pain/Injury MDM Narrative Medical decision making narrative: 47-year-old male here with right lower back pain after lifting have injury while working on Friday. Patient has no midline tenderness on exam, no CVA tenderness or abdominal pain. No reports of incontinence or numbness or tingling or weakness of lower extremities or in the groin. On exam patient has tenderness over the right lumbar soft tissue with no midline tenderness. X-rays from triage show no bony abnormality. Consider lumbar strain. Less likely epidural abscess with no neurological deficits or red flag symptoms, no fevers or chills, no immunocompromise state or IV drug abuse, no former lumbar surgery or hardware in place Less likely cord compression or cauda equina with normal neurological exam Patient will be discharged with NSAID, muscle relaxant, medicated patches, recommendation to follow-up with were connection for any continued symptoms. Patient should return for any worrisome signs or symptoms. Comfortable plan for discharge home. Differential Diagnosis Differential diagnosis: Likely lumbar radiculopathy, strain of lumbar region, renal colic and pyelonephritis Medical Records Attestation: I reviewed the patient's medical records. Lab Data Attestation: I reviewed the patient's lab results. Imaging Data lumbar x-ray: Attestation: I personally reviewed and interpreted this imaging study as follows: Radiologist's impression: [address] [address] XRay Report Signed Patient: Arturo Whitney MR#: [id number] : 1975 Acct:[id number] Age/Sex: 47 / M ADM Date: 10/08/22 Loc: HO.ED Attending Dr: Ordering Physician: Generic ED Physician Date of Service: 10/08/22 Procedure(s): XR lumbar spine 2-3V Accession Number(s): [id number] cc: Generic ED Physician~ EXAMINATION: XR LUMBOSACRAL SPINE CLINICAL INFORMATION: Back pain. COMPARISON: None TECHNIQUE: Three views of the lumbosacral spine. FINDINGS: The vertebral bodies and posterior elements are normal. The disc spaces are preserved and the vertebral alignment is normal. The paraspinal soft tissues are normal. XR/XR lumbar spine 2-3V IMPRESSION: Unremarkable lumbar spine. Discharge Plan Discharge Clinical Impression: Strain of lumbar region Patient Disposition: Home, Self-Care Instructions: Low Back Strain (ED), Lower Back Exercises (ED) Additional Instructions: calor o hielo Estiramiento suave NO levantar objetos pesados ??ni agacharse. Seguimiento con conexi?n laboral al [phone]. Prescriptions: New ibuprofen 600 mg tablet 600 mg PO Q8H PRN (Reason: pain) Qty: 30 0RF cyclobenzaprine 10 mg tablet 10 mg PO TID PRN (Reason: muscle spasm) Qty: 15 0RF lidocaine [Lidoderm] 5 % adhesive patch,medicated 1 patch topical DAILY Qty: 15 0RF Rx Instructions: leave on most painful area for up to 12 hrs No Action pyridoxine (vitamin B6) 100 mg tablet 100 mg PO DAILY Qty: 90 3RF Referrals: Jaelyn Quintero MD [Primary Care Provider] - 5 days Stand Alone Forms: Work/School Release Print Language: [place] Islander
--- NOTE | 2022-10-08 16:24 | PC.NURSE ---
DISCHARGED BY PROVIDER
== END 2022-10-08 16:26 | disposition home or self-care (01) ==
PROVIDERS: Emergency Provider Emergency Medicine; PCP Internal Medicine
DX: S39.012A Strain of muscle, fascia and tendon of lower back, initial encounter (principal); X50.0XXA Overexertion from strenuous movement or load, initial encounter; Y93.89 Activity, other specified; Y92.59 Other trade areas as the place of occurrence of the external cause; Y99.0 Civilian activity done for income or pay
CPT/HCPCS: 72100; 99282; 99283

== ENCOUNTER 2022-12-31 10:04 | Outpatient (REF) | payer OTHER, SELFPAY ==
--- NOTE | ~2022-12-31 | MR_ITS ---
EXAMINATION: MR BRAIN WITHOUT CONTRAST CLINICAL INFORMATION: New daily persistent headache. COMPARISON: None available. TECHNIQUE: Multiplanar, multisequence imaging of the brain was performed without intravenous contrast. FINDINGS: There is no acute infarction, hemorrhage, or extra-axial fluid collection. The ventricles are normal in size without hydrocephalus. Mild amount of periventricular T2/FLAIR hyperintensity is noted, nonspecific. There is no hydrocephalus. The major arterial flow voids appear preserved at the skull base. The orbital contents appear normal. There is moderate paranasal sinus mucosal thickening without fluid levels. The mastoids are clear. MR/MR head/brain wo con IMPRESSION: No acute infarct, mass lesion, intracranial hemorrhage, or evidence of hydrocephalus. Moderate paranasal sinus mucosal thickening without fluid levels.
[2022-12-31 10:16] LABS: MANUAL DIFF FLAG NO
[2022-12-31 10:29] LABS: Basophils Absolute Auto 0.1 X10*3/uL (0.0-0.2); Basophils Percent Auto 0.8 % (0-2); Eosinophils Absolute Auto 0.2 X10*3/uL (0.0-0.4); Eosinophils Percent Auto 2.5 % (0-4); Hematocrit 49.3 % (42.0-52.0); Hemoglobin 16.6 g/dl (14.0-18.0); Imm Gran Abs Auto 0.03 X10*3/uL (0.00-0.03); Imm Gran Pct Auto 0.4 % (0.0-0.4); Lymphocytes Percent Auto 28.3 % (20-40); Mean Corpuscular HGB Conc 33.7 g/dl (31.0-36.0); Mean Corpuscular Hemoglobin 28.1 pg (27.0-33.0); Mean Corpuscular Volume 83.6 fL (80.0-98.0); Mean Platelet Volume 11.6 fL (9.4-12.4); Monocytes Absolute Auto 0.7 X10*3/uL (0.1-1.2); Neutrophils Absolute Auto 4.3 x10*3/uL (2.0-8.3); Platelet Count 161 X10*3/uL (160-400); Red Cell Distribution Width 13.7 % (11.0-16.0); White Blood Count 7.2 X10*3/uL (4.8-10.8)
[2022-12-31 11:23] LABS: Alanine Aminotransferase 31 U/L (0-40); Alkaline Phosphatase 125 U/L (39-117); Anion Gap 11 (12-20); Aspartate Amino Transferase 23 U/L (5-37); Blood Urea Nitrogen 9 mg/dL (9-16); Calcium 8.8 mg/dL (8.4-10.2); Carbon Dioxide 29 mmol/L (22-29); Chloride 108 mmol/L (96-108); Cholesterol 149 mg/dL; Estimated Glomerular Filt Rate > 60; Glucose Fasting 106 mg/dL (60-99); HDL Cholesterol 24 mg/dL; LDL Cholesterol Calculated 93 mg/dl; Sodium 144 mmol/L (135-145); Total Protein 6.9 g/dL (6.5-8.0); Triglycerides 163 mg/dL
== END 2022-12-31 10:05 | disposition home or self-care (01) ==
LOC: HO.MRI 10:04
PROVIDERS: PCP Internal Medicine; Visit Provider Internal Medicine
DX: G44.52 New daily persistent headache (NDPH) (principal); I10 Essential (primary) hypertension; E66.9 Obesity, unspecified; E78.5 Hyperlipidemia, unspecified
CPT/HCPCS: 36415; 70551; 80053; 80061; 84443; 85025

== ENCOUNTER → 2023-01-21 15:35 | Outpatient (BNV) | payer OTHER, SELFPAY | PROVIDERS: PCP Internal Medicine; Visit Provider Internal Medicine Medical Oncology | DX: R71.8 Other abnormality of red blood cells (principal) | CPT/HCPCS: 99204; 99213 ==

== ENCOUNTER 2023-08-12 08:50 | Emergency (ER) | payer OTHER, SELFPAY ==
[2023-08-12 09:03] VITALS: BP 151/100; PULSE 95; RESP 18; TEMP 36.5; O2SAT 97; BMI 32.1
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
[2023-08-12 11:20] VITALS: BP 131/88; BP 142/95; PULSE 71; PULSE 73
[2023-08-12 11:21] VITALS: BP 143/95; PULSE 75
[2023-08-12 11:22] VITALS: BP 131/88; PULSE 71; RESP 16; O2SAT 99
[2023-08-12 12:19] LABS: Glucose, Whole Blood 91 mg/dL (60-115)
[2023-08-12] MEDS: Meclizine HCl 25 MG TABLET PO (13:13)
== END 2023-08-12 15:21 | disposition home or self-care (01) ==
PROVIDERS: Emergency Provider Emergency Medicine; PCP Internal Medicine
DX: H81.10 Benign paroxysmal vertigo, unspecified ear (principal); Z87.891 Personal history of nicotine dependence; I10 Essential (primary) hypertension
CPT/HCPCS: 82947; 99283; 99284

== ENCOUNTER 2024-11-17 17:25 | Outpatient (AMB) | payer OTHER, SELFPAY ==
[2024-11-17 17:26] VITALS: BP 126/86; PULSE 88; O2SAT 98; BMI 32.2
--- NOTE | 2024-11-17 17:26 | A.OFFPC_ITS ---
Vital Signs 11/17/24 17:26 Height 5 ft 6 in Weight 199 lb 8 oz BMI 32.2 BP 126/86 Blood Pressure Location Lt brachial Position Sitting Pulse 88 Pulse Source Pulse Oximeter Pulse Oximetry (%) 98 Oxygen Delivery Method Room Air Intake Visit Reasons: Physical Exam Network Field Engineer Required: No Accompanied by: Self / Same As Patient Allergies Penicillins [PENICILLINS] Allergy (Unknown, Verified 11/17/24 17:48) Unknown Medication List - Last Reconciled 11/17/24 by Jaelyn Arriaga MD losartan 25 mg PO DAILY 90 days meclizine 25 mg PO QID ondansetron HCl 4 mg PO Q6-8H PRN Tobacco use date assessed: 12/18/22 HPI HPI Comments History of Present Illness Details The patient is a 49-year-old male presenting for his physical exam. Approximately one month ago, the patient noted discomfort initially perceived in the right lung area, later moving to the left and then centralizing. There have been no previous similar episodes, and the pain has not been associated with respiratory distress, wheezing, or other debilitating symptoms. He also reports chest pain in the middle ot the chest and has history of GERD in the past. The patient reports a high blood hemoglobin level identified during previous blood work but did not follow up with a c python developer. He has a history of controlled essential hypertension managed with Losartan 25 mg. The patient denies any prior surgical history and has not participated in colon cancer screening despite being above the recommended age for such preventive measures. There is a family history of hypertension in his father but no known history of hereditary blood disorders. - Discussed initiation of colonoscopy sc reening due to age over 45 - Blood pressure management with Yoanna constantino - Scheduled laboratory tests for cholest keren, liver, and kidney function assessment - Plan for hemoglobin level re-evaluatio n [facility] Medical History History of nephrolithotomy with removal of calculi Kidney stone Hematuria Lumbar pain Foreign body of left hand Left hand pain Surgical History No pertinent past surgical history Family History Father Hypertension Mother No problems noted. Maternal Grandmother No problems noted. Maternal Grandfather No problems noted. Paternal Grandfather Hypertension Son No problems noted. Son No problems noted. Daughter No problems noted. Daughter No problems noted. Daughter No problems noted. Daughter No problems noted. Other No family history of cancer Social History Household Members: [facility] Are you a primary professional healthcare representative to a significant other at home: No Do you presently have visiting nurse or other home services: No Alcohol intake: never Patient Tobacco Use Status: Former Tobacco user Tobacco use type: Cigarette e-Cigarette/Vaping Use: Never Used Second Hand Smoke Exposure: Yes service: No Current occupational status: employed Cognitive needs: No Hearing needs: No Vision needs: Yes Questionnaire PHQ-9 Over the last 2 weeks, how often have you been bothered by any of the following problems? 1. Little interest or pleasure in doing things: not at all 2. Feeling down, depressed, or hopeless: not at all 3. Trouble falling or staying asleep, or sleeping too much: not at all 4. Feeling tired or having little energy: not at all 5. Poor appetite or overeating: not at all 6. Feeling bad about yourself - or that you are a failure or have let yourself or your family down: not at all 7. Trouble concentrating on things, such as reading the newspaper or watching television: not at all 8. Moving or speaking so slowly that other people could have noticed. Or the opposite - being so fidgety or restless that you have been moving around a lot more than usual: not at all 9. Thoughts that you would be better off or of hurting yourself in some way: not at all Total score: 0 Depression Screening Interpretation: Negative Depression Screening Done: Yes 35031 - PHQ-9 Billing: Yes Source: Developed by Drs. Angel Oh, Dolores Hewitt, Tu Heaton and colleagues, with an educational daniel from [employer]. Thrive Questionnaire Date Thrive assessed: 11/17/24 I am a: Patient What is your living situation today?: I have a steady place to live Within the past 12 months, did the food you bought not last and you didn't have the money to get more?: Never true Within the past 12 months, did you worry whether your food would run out before you got money to buy more?: Never true Do you have trouble paying for medicines?: No Do you have trouble getting transportation to medical appointments?: No Do you have trouble paying your heating and electricity bill?: No Do you have trouble taking care of your child, family member or friend?: No Do you have trouble with day-to-day activities such as bathing, preparing meals, shopping, managing finances, etc.?: No Are you currently unemployed and looking for a job?: No Are you interested in more education?: No Please select the resources that you would like help with: None Currently or been in a relationship where the following occur: No concerns reported THRIVE Score: 0 AUDIT C Alcohol Use Questionnaire (AUDIT-C) 1. How often do you have a drink containing alcohol?: Never 3. How often do you have six or more drinks on one occasion?: Never Total Score: 0 Score Reviewed/Action Taken: No KB-7 AMB Questionnaire KB-7 Date KB - 7 assessed: 11/17/24 Feeling nervous, anxious, or on edge: 0 = Not at all Not being able to stop or control worryin = Not at all Worrying too much about different things: 0 = Not at all Trouble relaxin = Not at all Being so restless that it is hard to sit still: 0 = Not at all Becoming easily annoyed or irritable: 0 = Not at all Feeling afraid as if something awful might happen: 0 = Not at all Total KB-7 score (0-4 normal; 5-9 mild; 10-14 moderate; 15-21 severe): 0 Source: Developed by Drs. Angel Oh, Dolores Hewitt, Tu Heaton and colleagues, with an educational daniel from [employer]. KB-7 Assessment Billing KB-7 Assessment Tool: KB-7 Assessment 78196 Review of Systems Const All systems reviewed & are unremarkable except as noted in HPI and below Card Reports chest pain at rest, Denies chest pain with activity, Denies edema, Denies irregular heart rhythm, Denies claudication, Denies dyspnea, Denies dyspnea on exertion, Denies orthopnea, Denies paroxysmal nocturnal dyspnea and Denies slow heart rate Resp Denies cough, Denies dyspnea and Denies dyspnea on exertion Musc Reports back pain Neuro Denies lack of coordination Physical exam (Primary Care) Vital Signs: Last Vital Signs Pulse 88 11/17/24 17:26 BP 126/86 11/17/24 17:26 Pulse Ox 98 11/17/24 17:26 Oxygen Delivery Method Room Air 11/17/24 17:26 BMI result Body Mass Index 32.2 Tobacco/Smoking Status: Tobacco use Status Tobacco use date assessed 12/18/22 11/17/24 17:28 Patient Tobacco Use Status Former Tobacco user 11/17/24 17:28 Tobacco use type Cigarette 11/17/24 17:28 e-Cigarette/Vaping Use Never Used 11/17/24 17:28 PHQ-9: PHQ-9 Score PHQ-9: Total score 0 11/17/24 17:52 Depression Screening Interpretation: Negative Thrive Assessment: Date of Thrive Assessment Date Thrive assessed 11/17/24 11/17/24 17:28 Currently or been in a relationship where the following occur: No concerns reported [facility] Head: Yes normal to inspection, Yes normocephalic and Yes atraumatic Ears: external ears normal Eyes General: appearance normal, both eyes and all related structures Eyelids: Yes eyelids normal Conjunctivae: conjunctivae normal Neck Neck: Yes normal visual inspection and Yes supple Resp Effort & Inspection: normal respiratory effort Auscultation: clear to auscultation bilaterally Cardio Jugular venous distension: no JVD Rate: regular rate Rhythm: regular rhythm Heart sounds: S1 normal heart sound present and S2 normal heart sound present GI Inspection: Yes normal to inspection Palpation (GI): Soft to palpation and nontender Auscultation: normal bowel sounds Skin General skin exam: no rashes or lesions noted Neuro General: no focal motor deficits Extrem General: Yes full ROM Psych Appearance: grossly normal Office Procedures Flu Questionnaire Does the patient have a severe egg allergy?: No Does the patient have severe life threatening allergies?: No Does the patient have a fever or illness today?: No Has the patient ever had Guillain-Allen Syndrome?: No Has the patient ever had any past reaction to a flu shot?: No Immunizations Fluarix Triv [id number] (PF) 45 mcg (15 mcg x 3)/0.5 mL IM syringe Performing Provider: Jaelyn Arriaga MD [facility] [place] [facility] Documented (not given) by: OTILIA Obando on 11/17/24 17:28 Reason Not Given: Patient Refused Coding Level of Care Code Est Pt Level 3 (46450) Est Pt Prev Care 40-64y(46601) Diagnoses Physical exam Z00.00 Chest pain R07.9 Chronic GERD K21.9 Elevated hemoglobin D58.2 Additional Codes KB-7 Assessment Billing - KB-7 Assessment Tool: KB-7 Assessment 54212 ([id number]) PHQ-9 - 06943 - PHQ-9 Billing: Yes ([id number]) Time Spent (min) 35 Assessment & Plan Assessment & Plan (1) Physical exam: Code(s): Z00.00 - Encounter for general adult medical examination without abnormal findings Category: Medical (2) Chest pain: Code(s): R07.9 - Chest pain, unspecified Category: Medical (3) Chronic GERD: Code(s): K21.9 - Gastro-esophageal reflux disease without esophagitis Category: Medical (4) Elevated hemoglobin: Code(s): D58.2 - Other hemoglobinopathies Category: Medical Plan - Arrange for a colonoscopy for colorectal cancer screening next year - Perform lab work this week to reassess cholesterol, kidney, and liver function, as well as hemoglobin levels - Prescribe a chest X-ray to further investigate thoracic pain - Monitor blood pressure and continue Losartan therapy - Consider referral to hematology based on hemoglobin results Patient was informed and verbally consented to the use of an ambient scribe for clinic note documentation during this visit. I discussed with the patient the importance of initiating routine colonoscopy screenings due to his age. I recommended routine blood work evaluation to monitor organ function and hemoglobin levels, emphasizing the potential implications of persistently high levels. We reviewed blood pressure management strategies, highlighting the efficacy of Losartan. He agreed to undergo a chest X-ray for further investigation of thoracic discomfort and understood the necessity of a follow-up hematology evaluation. The patient was informed about ongoing care and agreed to the proposed management plan. Orders: Orders Influenza [id number] Immunization 11/17/24 Z23 - Encounter for immunization Lipid Panel 11/17/24 E78.5 - Hyperlipidemia, unspecified [place] upper GI series 11/17/24 K21.9 - Gastro-esophageal reflux disease without esophagitis XR chest 4 views 11/17/24 R07.9 - Chest pain, unspecified Complete Blood Count Auto Diff 11/17/24 D58.2 - Other hemoglobinopathies, D64.9 - Anemia, unspecified Comprehensive [place]. Panel Fast 11/17/24 I10 - Essential (primary) hypertension ECG 12 lead EKG 11/17/24 R07.9 - Chest pain, unspecified Referrals Open Access Screening Colonoscopy Referral Z12.12 - Encounter for screening for malignant neoplasm of rectum Patient Instructions: - Schedule and complete the full set of laboratory tests this week - Continue taking Losartan as prescribed for blood pressure management - Schedule a chest X-ray within the next week - Follow up with a colonoscopy screening next year - Monitor and report any new or worsening symptoms such as shortness of breath or increased thoracic pain - Maintain current lifestyle modifications regarding smoking cessation and alcohol avoidance - Return for follow-up in four months or sooner if symptoms persist or worsen
--- OUTSIDE RECORDS SUMMARY | 2024-11-17 17:27 | XMS_ITS ---
Author Organization [facility] Address [address] [place] [id number] Care Team Providers Care Vault Maker Name Role Phone Jaelyn Quintero Primary Care Provider Unavailab Angel Hogan Unavailable [phone] Monique Blanton Unavailable Unavailable REASON FOR VISIT Patient presents today for a colon screening Encounters Encounter Location Date Provider Diagnosis [facility] [address] [place] [phone] 11/05/2023 Angel De La Fuente PLAN OF TREATMENT No Information
--- OUTSIDE RECORDS SUMMARY | 2024-11-17 17:27 | XMS_ITS | Patient Health Record ---
Author Organization [facility] Address [address] [place] [address] Care Team Providers Care Edge Burnisher Name Role Phone Jaelyn Quintero Primary Care Provider Unavailab Angel Hogan Unavailable [phone] Monique Blanton Unavailable Unavailable REASON FOR REFERRAL No Information SOCIAL HISTORY Sex Assigned At : Social History Observation Description Sex Assigned At Unknown PLAN OF TREATMENT No Information Insurance Providers Payer Name Payer Address Payer Phone Subscriber Number Group Number Insured Name Patient Relationship to Insured Coverage Start Date Coverage End Date [facility] [address] [address] [place], [place] [id number] CURLY HOWARD Self - patient is the insured
--- OUTSIDE RECORDS SUMMARY | 2024-11-17 17:27 | XMS_ITS ---
Author Organization [facility] Address [address] [place] [phone] Care Team Providers Care Director Corporate Compliance Name Role Phone Jaelyn Quintero Primary Care Provider Unavailab Angel Hogan Unavailable [phone] Monique Blanton Unavailable Unavailable REASON FOR VISIT New pt no show Encounters Encounter Location Date Provider Diagnosis [facility] [address] [place] [id number] 11/05/2023 Angel De La Fuente PLAN OF TREATMENT No Information
== END 2024-11-17 17:57 | disposition home or self-care (01) ==
PROVIDERS: PCP Internal Medicine; Visit Provider Internal Medicine
DX: Z23 Encounter for immunization (principal)

== ENCOUNTER → 2024-11-17 17:25 | Outpatient (BNVA) | payer OTHER, SELFPAY | PROVIDERS: PCP Internal Medicine; Visit Provider Internal Medicine | DX: Z00.00 Encounter for general adult medical examination without abnormal findings (principal); R07.9 Chest pain, unspecified; K21.9 Gastro-esophageal reflux disease without esophagitis; D58.2 Other hemoglobinopathies | CPT/HCPCS: 90471; 96127; 99212; 99396 ==

== ENCOUNTER 2024-12-03 09:13 | Outpatient (REF) | payer OTHER, SELFPAY ==
[2024-12-03 09:36] LABS: MANUAL DIFF FLAG NO
--- OUTSIDE RECORDS SUMMARY | 2024-12-03 09:42 | XMS_ITS | Patient Health Record ---
Author Organization [facility] Address [address] [place] [address] Care Team Providers Care Wire Insulator Name Role Phone Jaelyn Quintero Primary Care Provider Unavailab Angel Hogan Unavailable [phone] Monique Blanton Unavailable Unavailable REASON FOR REFERRAL No Information SOCIAL HISTORY Sex Assigned At : Social History Observation Description Sex Assigned At Unknown PLAN OF TREATMENT No Information Insurance Providers Payer Name Payer Address Payer Phone Subscriber Number Group Number Insured Name Patient Relationship to Insured Coverage Start Date Coverage End Date [facility] [address] [address] [place], [place] [id number] CURLY HOWARD Self - patient is the insured
--- OUTSIDE RECORDS SUMMARY | 2024-12-03 09:42 | XMS_ITS ---
Author Organization [facility] Address [address] [place] [id number] Care Team Providers Care Aquatic Scientist Name Role Phone Jaelyn Quintero Primary Care Provider Unavailab Angel Hogan Unavailable [phone] Monique Blanton Unavailable Unavailable REASON FOR VISIT Patient presents today for a colon screening Encounters Encounter Location Date Provider Diagnosis [facility] [address] [place] [phone] 11/05/2023 Angel De La Fuente PLAN OF TREATMENT No Information
[2024-12-03 09:50] LABS: Basophils Absolute Auto 0.1 X10*3/uL (0.0-0.2); Basophils Percent Auto 1.7 % (0-2); Eosinophils Absolute Auto 0.3 X10*3/uL (0.0-0.4); Eosinophils Percent Auto 5.3 % (0-4); Hematocrit 48.1 % (42.0-52.0); Imm Gran Abs Auto 0.02 X10*3/uL (0.00-0.03); Imm Gran Pct Auto 0.3 % (0.0-0.4); Lymphocytes Absolute Auto 1.9 X10*3/uL (1.2-4.9); Lymphocytes Percent Auto 32.4 % (20-40); Mean Corpuscular HGB Conc 33.3 g/dl (31.0-36.0); Mean Corpuscular Hemoglobin 28.2 pg (27.0-33.0); Mean Corpuscular Volume 84.8 fL (80.0-98.0); Mean Platelet Volume 11.5 fL (9.4-12.4); Monocytes Absolute Auto 0.5 X10*3/uL (0.1-1.2); Monocytes Percent Auto 8.5 % (2-11); Neutrophils Absolute Auto 3.1 x10*3/uL (2.0-8.3); Neutrophils Percent Auto 51.8 % (45-73); Platelet Count 161 X10*3/uL (160-400); Red Blood Count 5.67 X10*6/uL (4.60-5.80); Red Cell Distribution Width 13.7 % (11.0-16.0)
[2024-12-03 10:54] LABS: Alanine Aminotransferase 25 U/L (0-40); Albumin Level 3.9 g/dL (3.5-5.0); Alkaline Phosphatase 120 U/L (39-117); Anion Gap 10 (12-20); Aspartate Amino Transferase 22 U/L (5-37); Bilirubin Total 0.7 mg/dL (0.0-1.0); Blood Urea Nitrogen 7 mg/dL (9-16); Carbon Dioxide 26 mmol/L (22-29); Chloride 109 mmol/L (96-108); Cholesterol 158 mg/dL (<200); Estimated Glomerular Filt Rate > 60; Glucose Fasting 112 mg/dL (60-99); HDL Cholesterol 25 mg/dL (>40); LDL Cholesterol Calculated 98 mg/dL (<100); Potassium 4.3 mmol/L (3.3-5.1); Sodium 141 mmol/L (135-145); Total Protein 7.2 g/dL (6.5-8.0); Triglycerides 177 mg/dL (<150)
== END 2024-12-03 09:14 | disposition home or self-care (01) ==
LOC: HO.LAB 09:13
PROVIDERS: PCP Internal Medicine; Visit Provider Internal Medicine
DX: D64.9 Anemia, unspecified (principal); D58.2 Other hemoglobinopathies; I10 Essential (primary) hypertension; E78.5 Hyperlipidemia, unspecified
CPT/HCPCS: 36415; 80053; 80061; 85025

== ENCOUNTER 2025-03-29 16:16 | Outpatient (AMB) | payer OTHER, SELFPAY ==
[2025-03-29 16:22] VITALS: BP 128/82; BMI 32.9
--- NOTE | 2025-03-29 16:22 | MHC.PC.OV ---
Vital Signs 03/29/25 16:22 Height 5 ft 6 in Weight 204 lb BMI 32.9 BP 128/82 Blood Pressure Location Lt brachial Position Sitting Intake Visit Reasons: 4 month Intake Note: Patient here for a 4 month follow up Telephonic Case Manager Required: No Accompanied by: Self / Same As Patient Allergies Penicillins [PENICILLINS] Allergy (Unknown, Verified 03/29/25 16:45) Unknown Medication List - Last Reconciled 03/29/25 by Jaelyn Arriaga MD losartan 25 mg PO DAILY 90 days Tobacco use date assessed: 03/29/25 Dental Screening Dental Screen Date: 03/29/25 Did you have a dental visit in the last 12 months?: No Did you have a dental problem in the last 6 months where you did not have access to dental care?: No Was dental information given to patient?: Patient has dentist HPI HPI Comments History of Present Illness Details The patient is a 49-year-old male presenting with issues of hypocalcemia and prediabetes, with discussions involving colon cancer screening and back pain treatment. Previously detected in December, the low calcium levels were re-examined, and compliance with prescribed calcium supplements was discussed. Dietary habits contributing to the calcium deficiency were evaluated, as the patient does not consume dairy products. Prediabetes is also addressed, with prior labs showing a glucose level of 112 mg/dL, necessitating further assessment. The patient is aware of the implications and is scheduled for follow-up labs. Regarding colon cancer screening, the patient has no family history of the disease but notes difficulty completing previous referrals. Cologuard, a less invasive, home-based method, was suggested for completion. The patient's chronic back discomfort in the middle region suggests ongoing issues from a previously identified condition assessed via X-ray in 2021. Discussions included the possibility of specialist referral for comprehensive management strategies regarding back pain. [facility] Medical History (Updated 03/29/25 @ 16:57 by Jaelyn Arriaga MD) History of nephrolithotomy with removal of calculi Kidney stone Hematuria Lumbar pain Foreign body of left hand Left hand pain Surgical History No pertinent past surgical history Family History Father Hypertension Mother No problems noted. Maternal Grandmother No problems noted. Maternal Grandfather No problems noted. Paternal Grandfather Hypertension Son No problems noted. Son No problems noted. Daughter No problems noted. Daughter No problems noted. Daughter No problems noted. Daughter No problems noted. Other No family history of cancer Social History Household Members: Spouse Housing: Condominium Are you a primary animal daycare provider to a significant other at home: No Do you presently have visiting nurse or other home services: No Alcohol intake: never Patient Tobacco Use Status: Former Tobacco user Tobacco use type: Cigarette e-Cigarette/Vaping Use: Never Used Second Hand Smoke Exposure: Yes service: No Current occupational status: employed Current occupational exposures/hazards: No Cognitive needs: No Hearing needs: No Vision needs: Yes Questionnaire PHQ-9 Over the last 2 weeks, how often have you been bothered by any of the following problems? 1. Little interest or pleasure in doing things: not at all 2. Feeling down, depressed, or hopeless: not at all 3. Trouble falling or staying asleep, or sleeping too much: several days 4. Feeling tired or having little energy: several days 5. Poor appetite or overeating: not at all 6. Feeling bad about yourself - or that you are a failure or have let yourself or your family down: not at all 7. Trouble concentrating on things, such as reading the newspaper or watching television: several days 8. Moving or speaking so slowly that other people could have noticed. Or the opposite - being so fidgety or restless that you have been moving around a lot more than usual: several days 9. Thoughts that you would be better off or of hurting yourself in some way: not at all Total score: 4 Depression Screening Interpretation: Positive Depression Screening Follow-up: Existing condition and Follow-up Visit Requested Depression Screening Done: Yes 27158 - PHQ-9 Billing: Yes Source: Developed by Drs. Angel Oh, Dolores Heiwtt, Tu Heaton and colleagues, with an educational daniel from [employer]. Thrive Questionnaire Date Thrive assessed: 03/29/25 I am a: Patient What is your living situation today?: I have a steady place to live Within the past 12 months, did the food you bought not last and you didn't have the money to get more?: Never true Within the past 12 months, did you worry whether your food would run out before you got money to buy more?: Never true Do you have trouble paying for medicines?: No Do you have trouble getting transportation to medical appointments?: No Do you have trouble paying your heating and electricity bill?: No Do you have trouble taking care of your child, family member or friend?: No Do you have trouble with day-to-day activities such as bathing, preparing meals, shopping, managing finances, etc.?: No Are you currently unemployed and looking for a job?: No Are you interested in more education?: Yes Please select the resources that you would like help with: None Currently or been in a relationship where the following occur: I choose not to answer THRIVE Score: 0 AUDIT C Alcohol Use Questionnaire (AUDIT-C) 1. How often do you have a drink containing alcohol?: Never Total Score: 0 Score Reviewed/Action Taken: No KB-7 AMB Questionnaire KB-7 Date KB - 7 assessed: 03/29/25 Feeling nervous, anxious, or on edge: 2 = More than half the days Not being able to stop or control worryin = Several days Worrying too much about different things: 1 = Several days Trouble relaxin = Several days Being so restless that it is hard to sit still: 1 = Several days Becoming easily annoyed or irritable: 1 = Several days Feeling afraid as if something awful might happen: 0 = Not at all Total KB-7 score (0-4 normal; 5-9 mild; 10-14 moderate; 15-21 severe): 7 Source: Developed by Drs. Angel Oh, Dolores Hewitt, Tu Heaton and colleagues, with an educational daniel from [employer]. KB-7 Assessment Billing KB-7 Assessment Tool: KB-7 Assessment 60277 Review of Systems Const All systems reviewed & are unremarkable except as noted in HPI and below Card Denies chest pain at rest, Denies chest pain with activity, Denies edema, Denies irregular heart rhythm, Denies claudication, Denies dyspnea, Denies dyspnea on exertion, Denies orthopnea, Denies paroxysmal nocturnal dyspnea and Denies slow heart rate Resp Denies cough, Denies dyspnea and Denies dyspnea on exertion Denies urinary hesitancy, Denies urinary incontinence and Denies urinary urgency Musc Reports back pain, Denies atrophy, Denies deformity and Denies limited range of motion Physical exam (Primary Care) Vital Signs: Last Vital Signs BP 128/82 03/29/25 16:22 BMI result Body Mass Index 32.9 BMI Assessment/Plan discussion: High BMI High, discussed plan: lifestyle, weight reduction, dietary and physical activity Tobacco/Smoking Status: Tobacco use Status Tobacco use date assessed 03/29/25 03/29/25 16:29 Patient Tobacco Use Status Former Tobacco user 03/29/25 16:25 Tobacco use type Cigarette 03/29/25 16:25 e-Cigarette/Vaping Use Never Used 03/29/25 16:25 PHQ-9: PHQ-9 Score PHQ-9: Total score 4 03/29/25 16:29 Depression Screening Interpretation: Positive Depression Screening Follow-up: Existing condition and Follow-up Visit Requested Thrive Assessment: Date of Thrive Assessment Date Thrive assessed 03/29/25 03/29/25 16:29 Currently or been in a relationship where the following occur: I choose not to answer Resp Effort & Inspection: normal respiratory effort Auscultation: clear to auscultation bilaterally Cardio Jugular venous distension: no JVD Rate: regular rate Rhythm: regular rhythm Heart sounds: S1 normal heart sound present and S2 normal heart sound present Extrem General: Yes full ROM Coding Level of Care Code Est Pt Level 4 (56585) Complex EM visit Add On G2211 Diagnoses Hypocalcemia E83.51 Impaired glucose tolerance R73.02 Essential hypertension I10 Lumbar pain M54.5 Additional Codes PHQ-9 - 01917 - PHQ-9 Billing: Yes ([id number]) KB-7 Assessment Billing - KB-7 Assessment Tool: KB-7 Assessment 04950 ([id number]) Time Spent (min) 22 Assessment & Plan Assessment & Plan (1) Hypocalcemia: Code(s): E83.51 - Hypocalcemia Category: Medical (2) Impaired glucose tolerance: Code(s): R73.02 - Impaired glucose tolerance (oral) Category: Medical (3) Essential hypertension: Code(s): I10 - Essential (primary) hypertension Category: Medical (4) Lumbar pain: Code(s): M54.5 - Low back pain Category: Medical Plan The management of hypocalcemia involves reinitiating calcium supplementation and examining alternative options to reduce constipation concerns. Emphasis was placed on dietary intake rich in calcium. Prediabetes will be monitored with lifestyle modifications and reassessments through follow-up laboratory tests. Colon cancer screening through Cologuard will be pursued due to its convenience and non-invasiveness. Chronic back pain will be addressed by referring the patient to a specialist for further diagnostic evaluation and potential therapeutic intervention. This multifaceted approach aims to comprehensively manage both acute and chronic health concerns, ensuring follow-through with diagnostic and preventive care. Patient was informed and verbally consented to the use of an ambient scribe for clinic note documentation during this visit. I discussed the importance of adhering to calcium supplementation with the patient, considering his dietary habits and the potential consequences of untreated hypocalcemia. The discussion included alternative options to mitigate his concerns about constipation. For prediabetes, I emphasized lifestyle changes and the need for future glucose level assessments. Colon cancer screening through home-based Cologuard was explained, highlighting its convenience and addressing patient logistics. The benefits of specialist assessment for the back pain management were explained. The patient expressed agreement with the proposed plans and scheduling of follow-up for assessing laboratory results and managing ongoing health concerns. Orders: Orders Comprehensive [place]. Panel Fast Today R73.02 - Impaired glucose tolerance (oral) Phosphorus Today E83.51 - Hypocalcemia Parathyroid Hormone Intact Today E83.51 - Hypocalcemia Vitamin D 25-OH Total Today E55.9 - Vitamin D deficiency, unspecified, E83.51 - Hypocalcemia Calcium, Ionized Today E83.51 - Hypocalcemia Calcium, Random Urine Today E83.51 - Hypocalcemia Referrals Cologuard Test Z12.11 - Encounter for screening for malignant neoplasm of colon, Z12.12 - Encounter for screening for malignant neoplasm of rectum Pain Management Referral M54.5 - Low back pain Patient Instructions: - Introduce calcium-rich foods to diet. - Follow recommended lifestyle changes to manage blood sugar levels and adhere to planned laboratory follow-up. - Complete the Cologuard screening when received at home. - Follow through with referral to a specialist for evaluation and management of back pain. - Contact the office if any new symptoms arise or for any questions regarding the instructions.
== END 2025-03-29 16:55 | disposition home or self-care (01) ==
LOC: HO.HMCH 16:17
PROVIDERS: PCP Internal Medicine; Visit Provider Internal Medicine
DX: E83.51 Hypocalcemia (principal); R73.02 Impaired glucose tolerance (oral); I10 Essential (primary) hypertension; M54.50 Low back pain, unspecified

== ENCOUNTER → 2025-03-29 16:16 | Outpatient (BNVA) | payer OTHER, SELFPAY | PROVIDERS: PCP Internal Medicine; Visit Provider Internal Medicine | DX: E83.51 Hypocalcemia (principal); R73.02 Impaired glucose tolerance (oral); I10 Essential (primary) hypertension; M54.50 Low back pain, unspecified | CPT/HCPCS: 96127; 99212 ==

== ENCOUNTER 2025-11-30 07:37 | Outpatient (REF) | payer OTHER, SELFPAY ==
[2025-11-30 08:48] LABS: Parathyroid Hormone Intact 113.9 pg/mL (8.7-77.1)
[2025-11-30 08:50] LABS: Alanine Aminotransferase 33 U/L (0-40); Albumin Level 4.5 g/dL (3.5-5.0); Alkaline Phosphatase 119 U/L (39-117); Anion Gap 11 (12-20); Aspartate Amino Transferase 24 U/L (5-37); Blood Urea Nitrogen 13 mg/dL (9-16); Calcium 8.9 mg/dL (8.4-10.2); Carbon Dioxide 27 mmol/L (22-29); Chloride 108 mmol/L (96-108); Estimated Glomerular Filt Rate > 60; Potassium 4.1 mmol/L (3.3-5.1); Sodium 142 mmol/L (135-145); Total Protein 7.6 g/dL (6.5-8.0)
[2025-12-02 12:02] LABS: Calcium, Ionized 5.1 mg/dL (4.7-5.5)
[2025-12-02 17:44] LABS: Calcium, Random Urine 16.9 mg/dL
== END 2025-11-30 07:38 | disposition home or self-care (01) ==
LOC: HO.LAB 07:37
PROVIDERS: PCP Internal Medicine; Visit Provider Internal Medicine
DX: R73.02 Impaired glucose tolerance (oral) (principal); E83.51 Hypocalcemia
CPT/HCPCS: 36415; 80053; 82306; 82310; 82330; 83970; 84100